=== PATIENT | male | born 1945 | race Caucasian/White ===

== ENCOUNTER 2019-05-08 18:24 | Emergency (ER) | payer MEDICARE, OTHER ==
[~2019-05-08] VITALS: Ht 175.3 cm; Wt 68.0 kg
[2019-05-08 19:05] LABS: BASOPHILS ABSOLUTE AUTO 0.03 K/mm3 (0.00-0.23); BASOPHILS PERCENT AUTO 0 % (0-2); EOSINOPHILS ABSOLUTE AUTO 0.04 K/mm3 (0.00-0.68); EOSINOPHILS PERCENT AUTO 1 % (0-6); Hematocrit 43.9 % (37.0-53.0); Hemoglobin 14.7 g/dL (13.5-17.5); IMMATURE GRAN ABSOLUTE AUTO 0.01 K/mm3 (0.00-0.10); IMMATURE GRAN PERCENT AUTO 0 % (0-1); LYMPHOCYTES ABSOLUTE AUTO 3.07 K/mm3 (0.84-5.20); LYMPHOCYTES PERCENT AUTO 39 % (21-46); MONOCYTES ABSOLUTE AUTO 0.77 K/mm3 (0.16-1.47); MONOCYTES PERCENT AUTO 10 % (4-13); Mean Corpuscular HGB Conc 33.5 g/dL (31.5-36.5); Mean Corpuscular Volume 98 fL (80-100); Mean Platelet Volume 10.3 fL (9.1-12.4); NEUTROPHILS ABSOLUTE AUTO 3.95 K/mm3 (1.96-9.15); NEUTROPHILS PERCENT AUTO 50 % (41-73); Platelet Count 207 K/mm3 (150-400); RDW Coefficient Variation 13.2 % (11.7-14.2); RDW Standard Deviation 48.6 fL (35.1-46.3); Red Blood Cell Count 4.46 M/mm3 (4.30-5.90); White Blood Cell Count 7.87 K/mm3 (4.00-11.30)
[2019-05-08 19:20] LABS: International Normalized Ratio 1.05; Prothrombin Time Results 11.1 Sec (9.7-11.5)
[2019-05-08 19:36] LABS: Alanine Aminotransfer (ALT/SGP 16 U/L (12-78); Albumin, Blood 4.1 g/dL (3.4-5.0); Albumin/Globulin Ratio 1.4 (0.8-1.8); Alk Phos 55 U/L (50-136); Anion Gap 7 mmol/L (6-16); Aspartate Aminotrans (AST/SGOT 17 U/L (12-37); Blood Urea Nitrogen 14 mg/dL (8-24); Bun/Creatinine Ratio 13.7 (12.0-20.0); CO2, Blood 24 mmol/L (21-32); Calcium, Blood 9.1 mg/dL (8.5-10.1); Chloride, Blood 108 mmol/L (98-108); Creatinine, Blood 1.02 mg/dL (0.60-1.20); Globulin, Blood 2.9 g/dL (2.2-4.0); Glomerular Filtration Rate >60 (60-); Glucose, Blood 100 mg/dL (70-99); Potassium, Blood 3.8 mmol/L (3.5-5.5); Sodium, Blood 139 mmol/L (136-145)
== END 2019-05-08 21:04 | disposition short-term general hospital (02) ==
LOC: ER 18:24
PROVIDERS: Emergency Medicine
DX: I62.9 Nontraumatic intracranial hemorrhage, unspecified (principal)
CPT/HCPCS: 70450; 71045; 80053; 82947; 85025; 85610; 85730; 93005; 93010; 96365; 96366; 96368; 99285-25; J1953; J7050

== ENCOUNTER 2019-06-11 01:38 | Inpatient (IN) | payer MEDICARE, OTHER ==
[~2019-06-11] VITALS: Ht 177.8 cm; Wt 52.2 kg
[2019-06-11] MEDS ORDERED: Flomax0.4 MG PT (01:57)
[2019-06-11] MEDS ORDERED: ATOR20 PT (01:58)
[2019-06-11] MEDS ORDERED: LISI20 PT (01:59)
[2019-06-11] MEDS ORDERED: NICO21TP TOP (02:00)
[2019-06-11] MEDS ORDERED: AMLO5 PT (02:00)
[2019-06-11] MEDS ORDERED: BACTRIM DS TAB1 EACH PT (02:01)
[2019-06-11] MEDS ORDERED: PROBIOTIC FORM1 EAC1 PT (02:02)
[2019-06-11 02:04] LABS: BASOPHILS ABSOLUTE AUTO 0.03 K/mm3 (0.00-0.23); BASOPHILS PERCENT AUTO 0 % (0-2); EOSINOPHILS PERCENT AUTO 1 % (0-6); Hematocrit 38.7 % (37.0-53.0); Hemoglobin 12.5 g/dL (13.5-17.5); IMMATURE GRAN ABSOLUTE AUTO 0.07 K/mm3 (0.00-0.10); IMMATURE GRAN PERCENT AUTO 1 % (0-1); LYMPHOCYTES ABSOLUTE AUTO 2.31 K/mm3 (0.84-5.20); LYMPHOCYTES PERCENT AUTO 26 % (21-46); MONOCYTES PERCENT AUTO 11 % (4-13); Mean Corpuscular HGB 31.7 pg (26.0-34.0); Mean Corpuscular HGB Conc 32.3 g/dL (31.5-36.5); Mean Platelet Volume 9.8 fL (9.1-12.4); NEUTROPHILS ABSOLUTE AUTO 5.35 K/mm3 (1.96-9.15); NEUTROPHILS PERCENT AUTO 60 % (41-73); Platelet Count 293 K/mm3 (150-400); RDW Coefficient Variation 12.7 % (11.7-14.2); RDW Standard Deviation 45.7 fL (35.1-46.3); Red Blood Cell Count 3.94 M/mm3 (4.30-5.90); White Blood Cell Count 8.86 K/mm3 (4.00-11.30)
[2019-06-11] MEDS ORDERED: Duoneb 2.5-0.5 M3 ML INH (02:05)
[2019-06-11 02:07] LABS: Mean Corpuscular Volume 98 fL (80-100)
[2019-06-11] MEDS ORDERED: NEURONTIN PT (02:08)
[2019-06-11] MEDS ORDERED: ACETAMINOPHEN PT (02:08)
[2019-06-11] MEDS ORDERED: BISA10S PR (02:09)
[2019-06-11] MEDS ORDERED: Docusate S50 MG/5 ML PT (02:13)
[2019-06-11] MEDS ORDERED: ONDA4 PO (02:13)
[2019-06-11] MEDS ORDERED: NUTREN 1.5250 ML PT (02:15)
[2019-06-11 02:23] LABS: Alanine Aminotransfer (ALT/SGP 58 U/L (12-78); Albumin, Blood 2.8 g/dL (3.4-5.0); Albumin/Globulin Ratio 0.7 (0.8-1.8); Alk Phos 83 U/L (50-136); Anion Gap 6 mmol/L (6-16); Aspartate Aminotrans (AST/SGOT 41 U/L (12-37); Bilirubin, Total 0.5 mg/dL (0.1-1.0); Blood Urea Nitrogen 15 mg/dL (8-24); Bun/Creatinine Ratio 16.7 (12.0-20.0); CO2, Blood 31 mmol/L (21-32); Calcium, Blood 9.1 mg/dL (8.5-10.1); Chloride, Blood 106 mmol/L (98-108); Globulin, Blood 3.8 g/dL (2.2-4.0); Glomerular Filtration Rate >60 (60-); Glucose, Blood 90 mg/dL (70-99); Potassium, Blood 3.9 mmol/L (3.5-5.5); Sodium, Blood 143 mmol/L (136-145); Total Protein, Blood 6.6 g/dL (6.4-8.2)
[2019-06-11] MEDS ORDERED: BANANA FLAKES PT (02:30)
[2019-06-11 04:32] LABS: Adenovirus F 40/41 Not Detected (NOT DETECT); Astrovirus Not Detected (NOT DETECT); Campylobacter Sp Not Detected (NOT DETECT); Cryptosporidium Not Detected (NOT DETECT); Cyclospora Cayetanensis Not Detected (NOT DETECT); E. Coli O157 Not Detected (NOT DETECT); Entamoeba Histolytica Not Detected (NOT DETECT); Enteroaggregative E. coli-EAEC Not Detected (NOT DETECT); Enteropathogenic E. coli-EPEC Not Detected (NOT DETECT); Enterotoxigenic E. coli-ETEC Not Detected (NOT DETECT); Giardia Lamblia Not Detected (NOT DETECT); Norovirus GI/GII Not Detected (NOT DETECT); Plesiomonas Shigelloides Not Detected (NOT DETECT); Rotavirus A Not Detected (NOT DETECT); Salmonella Sp Not Detected (NOT DETECT); Sapovirus Not Detected (NOT DETECT); Shiga Toxin-prod E. coli-STEC Not Detected (NOT DETECT); Shigella/Enteroin E. coli-EIEC Not Detected (NOT DETECT); Vibrio Cholerae Not Detected (NOT DETECT); Vibrio Sp Not Detected (NOT DETECT); Yersinia Enterocolitica Not Detected (NOT DETECT)
--- NOTE | 2019-06-11 06:36 | NUR ---
PT ARRIVED PER ER. ALERT. INDWELLING CHAVEZ REMOVED.
[2019-06-11 07:32] LABS: Source, Urine Catheter
[2019-06-11 07:36] LABS: Bilirubin, Urine Neg (Neg); Blood, Urine 2+ (Neg); Glucose Qualitative, Urine Neg (Neg); Ketones, Urine Neg (Neg); Leukocyte Esterase, Urine 1+ (Neg); Nitrite, Urine Neg (Neg); Protein, Urine Neg (Neg); Urobilinogen, Urine 2+ (Normal)
[2019-06-11 08:15] LABS: Appearance, Urine Clear (Clear); Color, Urine Yellow (P-Yellow)
[2019-06-11 08:17] LABS: Bacteria Mod /hpf; Squamous Epithelial Cells Rare /hpf (Few)
[2019-06-11 08:18] LABS: Amorphous Light (0-Heavy)
--- NOTE | 2019-06-11 15:37 | NUR ---
DOBHOFF TUBE INSERTED. DR REPORTS PT WILL HAVE XRAY TO VERIFY PLACEMENT IN THE MORNING.
--- NOTE | 2019-06-11 17:30 | NUR ---
SHIFT SUMMARY PT IS A/O ALTHOUGH HAS VERY DIFFICULT TIME COMMUNICATING VERBALLY SINCE CVA. HE HAS BEEN UP TO THE CHAIR TODAY BUT WAS UNCOMFORTABLE AND HAS BEEN IN BED SINCE AFTERNOON. HAS BEEN IN TO SEE PT. DOBHOFF TUBE WAS PLACED TODAY; PT WILL HAVE XRAY TOMORROW TO CONFIRM PLACEMENT PER DR JOINER. CHAVEZ IN PLACE, OFF FLOOR, DRAINING. FLUIDS HAVE BEEN RUNNING TODAY PER ORDERS. PT HAS ONLY REPORTED PAIN WHEN PEG TUBE IS TOUCHED. ASSISTED WITH ADL'S PRN.
[2019-06-12 04:05] LABS: BASOPHILS ABSOLUTE AUTO 0.04 K/mm3 (0.00-0.23); BASOPHILS PERCENT AUTO 1 % (0-2); EOSINOPHILS ABSOLUTE AUTO 0.08 K/mm3 (0.00-0.68); EOSINOPHILS PERCENT AUTO 1 % (0-6); Hematocrit 35.5 % (37.0-53.0); Hemoglobin 11.4 g/dL (13.5-17.5); IMMATURE GRAN ABSOLUTE AUTO 0.06 K/mm3 (0.00-0.10); IMMATURE GRAN PERCENT AUTO 1 % (0-1); LYMPHOCYTES ABSOLUTE AUTO 2.04 K/mm3 (0.84-5.20); LYMPHOCYTES PERCENT AUTO 27 % (21-46); MONOCYTES ABSOLUTE AUTO 0.72 K/mm3 (0.16-1.47); MONOCYTES PERCENT AUTO 10 % (4-13); Mean Corpuscular HGB 31.6 pg (26.0-34.0); Mean Corpuscular HGB Conc 32.1 g/dL (31.5-36.5); Mean Corpuscular Volume 98 fL (80-100); Mean Platelet Volume 9.7 fL (9.1-12.4); NEUTROPHILS ABSOLUTE AUTO 4.56 K/mm3 (1.96-9.15); NEUTROPHILS PERCENT AUTO 61 % (41-73); Platelet Count 278 K/mm3 (150-400); RDW Coefficient Variation 12.8 % (11.7-14.2); RDW Standard Deviation 45.8 fL (35.1-46.3); Red Blood Cell Count 3.61 M/mm3 (4.30-5.90)
[2019-06-12 04:25] LABS: Anion Gap 8 mmol/L (6-16); Blood Urea Nitrogen 13 mg/dL (8-24); CO2, Blood 26 mmol/L (21-32); Calcium, Blood 8.9 mg/dL (8.5-10.1); Chloride, Blood 106 mmol/L (98-108); Creatinine, Blood 0.82 mg/dL (0.60-1.20); Glomerular Filtration Rate >60 (60-); Glucose, Blood 70 mg/dL (70-99); Potassium, Blood 4.1 mmol/L (3.5-5.5); Sodium, Blood 140 mmol/L (136-145)
--- NOTE | 2019-06-12 06:31 | NUR ---
SHIFT SUMMARY PT ABLE TO MOVE LEFT SIDE OF BODY AND PULL SELF UP IN BED WITH LEFT HAND. MOVES RIGHT ARM WITH LEFT HAND AND REPOSITIONES PRN. MEPILEX IN PLACE TO COCCYX. C-XRAY COMPLTED FOR DUBHOFF PLACEMENT AND ADVANCEMENT VERIFICATION. PASSING GAS, BUT NO BM NOTED THIS SHIFT. CONTINUES TO C/O ABD PAIN AND HIS HAD 2 EPISODES OF HICKUPS. ASSITED IN REPOSISIONING PRN. DENEIS FURTHER NEEDS OR WANTS AT THIS TIME. SAFETY MEASURES IN PLACE. WILL GIVE HAND OFF TO ONCOMING SHIFT USING SBAR.
--- NOTE | 2019-06-12 17:39 | NUR ---
SHIFT SUMMARY NO ACUTE CHANGES THIS SHIFT. PT REMIANS NPO. DOBHOFF TUBE ADVANCED PER ORDERS. 25MCG IV FENTANYL FOR PAIN PRN. PT REPOSITIONS SELF IN BED AND REFUSES REPOSITIONING HELP FROM STAFF. MEPILEX TO COCCYX. CHAVEZ PATENT. IVF INFUSING PER ORDERS. CALL LIGHT WITHIN REACH.
--- NOTE | 2019-06-13 06:18 | NUR ---
SHIFT SUMMARY PATIENT HAS HAD PAIN IN HIS ABDOMEN AND THE HICCOPS THROUGH OUT THE NIGHT. PATIENT HAS BEEN MEDICATED PER EMAR ORDERS. COMMUNICATION HAS BEEN DIFFICULT THE PATIENT IS UNABLE TO FULLY EXPRESS EVERY NEED. HE DOES OCCASIONALY SPEAK A YEA OR NO THAT IS CLEAR. WORKING ON HIS COUGH TO CLEAR SECREATIONS. HE IS ABLE TO TURN HIS SELF VERY OFTEN IN BED FROM LT RT RIGHT. PATIENT WAS ABLE TO GET 3+ HOURS OF UNINTERRUPTED SLEEP. NO OTHER ACUTE CHANGES.
--- NOTE | 2019-06-13 15:52 | NUR ---
S/P G TUBE PLACEMENT BY DR. CABRERA. G TUBE TO LUQ GAUZE DRESSING IS CDI. TUBE CLAMPED AT THIS TIME. PT REPORTS 5/10 PAIN. MEDICATED WITH FENTANYL IN [facility]. IVF INFUSING PER ORDERS. VITALS IN PROGRESS. OLD PEG TUBE STILL IN PLACE AND CLAMED AT THIS TIME. CALL LIGHT WITHIN REACH.
--- NOTE | 2019-06-13 17:26 | NUR ---
Pt. gave approval to provide care on 06/14/2019, at 1712 06/13/2019.
--- NOTE | 2019-06-13 17:43 | NUR ---
PT VERY NAUSEATED AND HAS HAD X2 EPISODES OF EMESIS POST OP. PT REPORTS INCREASED ABDOMINAL PAIN AND ABD IS FIRM AND TENDER TO THE TOUCH. TUBE FEEDS NOT STARTED PER CLINICAL JUDGEMENT AND PER DR. CABRERA ORDER.
--- NOTE | 2019-06-14 06:08 | NUR ---
shift summary: SBP elevated >160, medicated per mar with lowering <160. pt remained mostly non-verbal, a/0 x 4, able to gesture and give one word responses/requests. NPO this shift per orders r/t n/v, abd pain. pt struggled with abd pain and n/v, medicated per mar with 3 different antiemetics, nausea controlled with phenergan and zofran. pain reported at 4/10 at the lowest following administraion of analgesia per mar. pt unable to sleep until approx 0130, but appears to be sleeping intermittently on nurse roundings after 0130. pt with 3 large, liquid, incontent BM requiring full bed changes.
--- NOTE | 2019-06-14 08:00 | NUR ---
pt wakes to verbal stimuli asked if pt needs any pain meds at this time pt declined no nausea at this time pt has some light green drainage to j tube gauze
[2019-06-14 08:58] LABS: Hematocrit 34.6 % (37.0-53.0); Hemoglobin 11.5 g/dL (13.5-17.5); Mean Corpuscular HGB 32.1 pg (26.0-34.0); Mean Corpuscular HGB Conc 33.2 g/dL (31.5-36.5); Mean Corpuscular Volume 97 fL (80-100); Mean Platelet Volume 9.7 fL (9.1-12.4); Platelet Count 327 K/mm3 (150-400); RDW Coefficient Variation 13.4 % (11.7-14.2); RDW Standard Deviation 47.3 fL (35.1-46.3); Red Blood Cell Count 3.58 M/mm3 (4.30-5.90); White Blood Cell Count 13.06 K/mm3 (4.00-11.30)
[2019-06-14 09:08] LABS: Anion Gap 12 mmol/L (6-16); Blood Urea Nitrogen 12 mg/dL (8-24); Bun/Creatinine Ratio 15.6 (12.0-20.0); CO2, Blood 25 mmol/L (21-32); Calcium, Blood 8.4 mg/dL (8.5-10.1); Chloride, Blood 103 mmol/L (98-108); Creatinine, Blood 0.77 mg/dL (0.60-1.20); Glomerular Filtration Rate >60 (60-); Glucose, Blood 88 mg/dL (70-99); Potassium, Blood 3.8 mmol/L (3.5-5.5); Sodium, Blood 140 mmol/L (136-145)
--- NOTE | 2019-06-14 09:50 | NUR ---
dr moya by to see pt earlier this am pt had fever cxray and bc iv abx started pt oob in chair physicap therapy by earlier got pt up
--- NOTE | 2019-06-14 10:20 | NUR ---
pt req pain meds fent ivp pt assisted back into bed
--- NOTE | 2019-06-14 17:50 | NUR ---
DR JOINER BY TO SEE PT REMOVED OUTER GAUZE TO J TUBE DRESSING STATED WE COULD PUT IT TO SUCTION OR PUT IT TO A BAG TO GRAVITY IF STILL DRAINING AND WILL POSS START TF THUR PT WILL CONT TO KEEP THE OTHER TUBE LLQ PEG FOR SEVERAL DAYS ALSO TALKED WITH PT FAMILY
--- NOTE | 2019-06-14 18:30 | NUR ---
attached tube to low int sx light green scant amt out
--- NOTE | 2019-06-15 03:38 | NUR ---
PT REQUIRING PHENERGAN AND SUBLIMAZE TONIGHT.G-J TUBE CONTINUES TO SX WTIH PALE GREEN RETURN. PT SLEEPING AFTER PAIN MEDS.PT BEING TRANSFERRED TO RM 327. REPORT GIVEN TO MG VALDIVIA.
--- NOTE | 2019-06-15 04:06 | NUR ---
PATIENT ARRIVED TO FLOOR, SETTLED INTO THE ROOM. G-TUBE HOOKED TO LOW INTERMITTENT SUCTION, THERE IS GREEN BILE NOTED IN THE TUBE. DRESSINGS OVER BOTH PEG TUBE SITE AND G-TUBE SITE. CATHETER PATENT AND DRAINING. STATES MILD NAUSEA, WILL CHECK MAR TO SEE IF MEDS ARE DUE. WILL HAND BACK OF LR PATIENT IS JUST FINISHED THE LAST BAG. BED ALARM PLACED. CALL LIGHT GIVEN.
--- NOTE | 2019-06-15 05:12 | NUR ---
SHIFT SUMMARY: MONAE ARRIVED TO THE FLOOR AROUND 4 THIS MORNING. HE WAS SETTLED INTO THE ROOM. IV LR WAS STARTED AND PHENERGAN GIVEN FOR NAUSEA. HE DENIED ANY PAIN OR DISCOMFORT. DENIED NEED TO BE REPOSITIONED, IS ABLE TO MOVE SELF AROUND IN BED. G-TUBE HOOKED TO LOW INTERMINTENT SUCTION. DRESSINGS TO G-TUBE AND PEG TUBE INTACT, NO DRAINAGE NOTED. BED ALARM PLACED. PATIENT SLEPT REST OF SHIFT.
[2019-06-15 08:39] LABS: BASOPHILS ABSOLUTE AUTO 0.02 K/mm3 (0.00-0.23); BASOPHILS PERCENT AUTO 0 % (0-2); Hematocrit 36.9 % (37.0-53.0); IMMATURE GRAN PERCENT AUTO 0 % (0-1); MONOCYTES PERCENT AUTO 9 % (4-13); Mean Corpuscular HGB 31.7 pg (26.0-34.0); Mean Corpuscular HGB Conc 32.5 g/dL (31.5-36.5); Mean Corpuscular Volume 98 fL (80-100); Mean Platelet Volume 9.7 fL (9.1-12.4); Platelet Count 333 K/mm3 (150-400); RDW Coefficient Variation 13.5 % (11.7-14.2); RDW Standard Deviation 48.1 fL (35.1-46.3); Red Blood Cell Count 3.78 M/mm3 (4.30-5.90); White Blood Cell Count 9.56 K/mm3 (4.00-11.30)
[2019-06-15 09:34] LABS: LYMPHOCYTES PERCENT AUTO 16 % (21-46); NEUTROPHILS PERCENT AUTO 74 % (41-73)
[2019-06-15 09:35] LABS: EOSINOPHILS ABSOLUTE AUTO 0.04 K/mm3 (0.00-0.68); EOSINOPHILS PERCENT AUTO 0 % (0-6); IMMATURE GRAN ABSOLUTE AUTO 0.03 K/mm3 (0.00-0.10); LYMPHOCYTES ABSOLUTE AUTO 1.49 K/mm3 (0.84-5.20); MONOCYTES ABSOLUTE AUTO 0.89 K/mm3 (0.16-1.47); NEUTROPHILS ABSOLUTE AUTO 7.15 K/mm3 (1.96-9.15)
--- NOTE | 2019-06-15 18:05 | NUR ---
PATIENT HAS TOLERATED J TUBE FEEDINGS WELL WITH NO VOMITING. PATIENT STILL REPORTS SLIGHT NAUSEA BUT HAS NOT REQUESTED ANY MEDICATION FOR IT. HIS SPEACH IS GARBLED AND OFTEN HARD TO UNDERSTAND BUT IS ABLE TO MAKE HIS NEEDS KNOWN. G TUBE CONTINUES TO DRAIN VIA GRAVITY. DRESSING TO COCCYX CHANGED THIS SHIFT. PATIENT HAS TOLERATED ICE CHIPS THROUGH OUT THE DAY.
--- NOTE | 2019-06-16 05:09 | NUR ---
SHIFT SUMMARY ADMIT FOR PEG TUBE MALFUNCTION. FULL CODE. GJ TUBE INSTALLED. TUBE FEEDINGS NOW 20 ML/HR. PT STATED NAUSEA TWICE DURING MY SHIFT. ZOFRAN WAS EFFECTIVE. LR IS INFUSING @ 75 ML/HR. CHRONIC CHAVEZ IN PLACE. RA, GARBLED SPEECH, NPO DIET. PLAN MAY BE TO REMOVE OLD PEG TUBE TODAY. HX: HEMORRHAGIC CVA, HTN, COPD. SECONDARY DX: SEPSIS, UTI.
[2019-06-16 05:18] LABS: Hematocrit 33.4 % (37.0-53.0); Hemoglobin 11.1 g/dL (13.5-17.5); Mean Corpuscular HGB 31.6 pg (26.0-34.0); Mean Corpuscular HGB Conc 33.2 g/dL (31.5-36.5); Mean Platelet Volume 9.6 fL (9.1-12.4); Platelet Count 330 K/mm3 (150-400); RDW Coefficient Variation 13.4 % (11.7-14.2); RDW Standard Deviation 45.9 fL (35.1-46.3); Red Blood Cell Count 3.51 M/mm3 (4.30-5.90); White Blood Cell Count 8.37 K/mm3 (4.00-11.30)
[2019-06-16 05:23] LABS: Mean Corpuscular Volume 95 fL (80-100)
[2019-06-16 05:42] LABS: Magnesium, Blood 1.6 mg/dL (1.6-2.4)
[2019-06-16 05:43] LABS: Anion Gap 8 mmol/L (6-16); Blood Urea Nitrogen 9 mg/dL (8-24); Bun/Creatinine Ratio 12.2 (12.0-20.0); CO2, Blood 29 mmol/L (21-32); Calcium, Blood 8.4 mg/dL (8.5-10.1); Chloride, Blood 101 mmol/L (98-108); Creatinine, Blood 0.74 mg/dL (0.60-1.20); Glomerular Filtration Rate >60 (60-); Glucose, Blood 114 mg/dL (70-99); Phosphorus, Blood 3.4 mg/dL (2.5-4.9); Potassium, Blood 3.1 mmol/L (3.5-5.5); Sodium, Blood 138 mmol/L (136-145)
[2019-06-16 05:48] LABS: BASOPHILS PERCENT MAN 0 % (0-2); EOSINOPHILS ABSOLUTE MAN 0.16 K/mm3 (0.00-0.68); EOSINOPHILS PERCENT MAN 2 % (0-6); LYMPHOCYTES ABSOLUTE MAN 2.42 K/mm3 (0.84-5.20); LYMPHOCYTES PERCENT MAN 29 % (21-46); MONOCYTES ABSOLUTE MAN 0.25 K/mm3 (0.16-1.47); MONOCYTES PERCENT MAN 3 % (4-13); NEUTROPHILS ABSOLUTE MAN 5.52 K/mm3 (1.96-9.15); SEG NEUTROPHILS PERCENT MAN 66 % (41-73); TOTAL CELLS COUNTED 100
--- NOTE | 2019-06-16 12:02 | NUR ---
1145 SMALL AMOUNT OF FECAL MATTER COMING FROM FRESHLY CLIPPED PEG TUBE. DOCTOR RHYS NOTIFED AND STATED HE WOULD COME LOOK AT IT AFTER PROCEDURE. SITE WAS CLEANED AND WILL CONTINUE TO MONITOR. PATIENT IN NO DISTRESS .
[2019-06-16 12:16] LABS: BASOPHILS ABSOLUTE AUTO 0.01 K/mm3 (0.00-0.23); BASOPHILS PERCENT AUTO 0 % (0-2); EOSINOPHILS ABSOLUTE AUTO 0.04 K/mm3 (0.00-0.68); EOSINOPHILS PERCENT AUTO 1 % (0-6); Hematocrit 34.5 % (37.0-53.0); Hemoglobin 11.5 g/dL (13.5-17.5); IMMATURE GRAN ABSOLUTE AUTO 0.04 K/mm3 (0.00-0.10); IMMATURE GRAN PERCENT AUTO 1 % (0-1); LYMPHOCYTES ABSOLUTE AUTO 0.86 K/mm3 (0.84-5.20); LYMPHOCYTES PERCENT AUTO 13 % (21-46); MONOCYTES ABSOLUTE AUTO 0.55 K/mm3 (0.16-1.47); MONOCYTES PERCENT AUTO 8 % (4-13); Mean Corpuscular HGB Conc 33.3 g/dL (31.5-36.5); Mean Corpuscular Volume 96 fL (80-100); Mean Platelet Volume 9.9 fL (9.1-12.4); NEUTROPHILS ABSOLUTE AUTO 5.29 K/mm3 (1.96-9.15); NEUTROPHILS PERCENT AUTO 78 % (41-73); Platelet Count 334 K/mm3 (150-400); RDW Coefficient Variation 13.3 % (11.7-14.2); RDW Standard Deviation 47.4 fL (35.1-46.3); Red Blood Cell Count 3.59 M/mm3 (4.30-5.90); White Blood Cell Count 6.79 K/mm3 (4.00-11.30)
--- NOTE | 2019-06-16 17:00 | NUR ---
PATIENT TOLERATING FEEDINGS. RATE INCREASED TO 30ML/HR WITH FLUSH. TO BE INCREASED AFTER DR CUAUHTEMOC LARSON'S HIM 06/17/19. PATIENT WAS ABLE TO STAND WITH NEIL WALKER WHILE WORKING WITH PT. OLD PEG WAS CLIPPED BY DOCTOR JOINER . SMALL AMOUNT OF FECAL MATTER CAME OUT . NONE NOTED SINCE. PATIENT HAS NOT BEEN NAUSEATED THIS SHIFT.
--- NOTE | 2019-06-17 01:10 | NUR ---
BEGINNING SHIFT SUMMARY ASSUMED CARE OF PT AT 1900. PT WAS LYING IN BED RESTING. PT IS ALERT AND ORIENTED TO SELF, FOLLOWING DIRECTIONS AND SURROUNDINGS. PT HAS R SIDE DEFICIT DUE TO PREVIOUS CVA. PT HAS MUMBLED SPEECH DUE TO LEFT SIDED DROOP, PT BECOMES FUSTRATED AT TIMES DUE TO NOT BEING ABLE TO COMMUNICATE. PREVIOUS PEG TUBE IS DARK AROUND THE EDGES, NO S/SX OF INFECTION. J TUBE DRAINING DARK BROWN/GREEN LIQUID, CONTINUOUS FEEDING RUNNING AT 30ML/HR, TUBING CHANGED THIS SHIFT. IV INFUSING LR AT 75ML/HR. HEART SOUNDS REGULAR, LUNG SOUNDS DIMINISHED, PT C/O COUGH, PT SHOWED IT WAS NON PRODUCTIVE. DENIES CP/SOB/DYSPNEA AT THIS TIME. CALL LIGHT IN REACH, BED IN LOWEST POSTION, WILL CONTINUE TO MONITOR.
--- NOTE | 2019-06-17 04:26 | NUR ---
END SHIFT SUMMARY PT WAS NOT ABLE TO SLEEP AT ALL LAST NIGHT. PT SONTINUE TO HAVE DIFFICULTY COMMUNICATING NEEDS. MULTIPLE ATTEMPTS WITH WHITE BOARD AND PICTURE BOARD USED TO COMMUNICATE BUT PT DIDNT WAS TO WRITE AND HIS NEED WAS NOT ON THE BOARD. PUMP INFUSING AT 30ML/HR, PT COUGH HAS DECREASED. CALL LIGHT IN REACH, BED IN LOWEST POSTION, WILL CONTINUE TO MONITOR UNTIL DAYSHIFT NURSE ARRIVES.
[2019-06-17 06:12] LABS: BASOPHILS ABSOLUTE AUTO 0.03 K/mm3 (0.00-0.23); BASOPHILS PERCENT AUTO 1 % (0-2); EOSINOPHILS ABSOLUTE AUTO 0.12 K/mm3 (0.00-0.68); EOSINOPHILS PERCENT AUTO 2 % (0-6); Hematocrit 32.7 % (37.0-53.0); Hemoglobin 10.7 g/dL (13.5-17.5); IMMATURE GRAN ABSOLUTE AUTO 0.01 K/mm3 (0.00-0.10); IMMATURE GRAN PERCENT AUTO 0 % (0-1); LYMPHOCYTES ABSOLUTE AUTO 1.33 K/mm3 (0.84-5.20); LYMPHOCYTES PERCENT AUTO 22 % (21-46); MONOCYTES ABSOLUTE AUTO 0.68 K/mm3 (0.16-1.47); MONOCYTES PERCENT AUTO 11 % (4-13); Mean Corpuscular HGB 31.3 pg (26.0-34.0); Mean Corpuscular HGB Conc 32.7 g/dL (31.5-36.5); Mean Corpuscular Volume 96 fL (80-100); Mean Platelet Volume 10.5 fL (9.1-12.4); NEUTROPHILS ABSOLUTE AUTO 3.99 K/mm3 (1.96-9.15); NEUTROPHILS PERCENT AUTO 65 % (41-73); Platelet Count 333 K/mm3 (150-400); RDW Coefficient Variation 13.4 % (11.7-14.2); RDW Standard Deviation 46.4 fL (35.1-46.3); Red Blood Cell Count 3.42 M/mm3 (4.30-5.90); White Blood Cell Count 6.16 K/mm3 (4.00-11.30)
--- NOTE | 2019-06-17 16:09 | NUR ---
DISCHARGE DISCHARGE BACK TO [facility]. PATIENT TRANSPORTED VIA [facility] TRANSPORT. PACKET GIVEN TO WORKFORCE DEVELOPMENT ASSISTANT. IV REMOVED WITHOUT DIFFICULTY. REPORT CALLED TO [facility] NURSE.
[2019-06-17] MEDS ORDERED: AZIT100SU PT (16:30)
[2019-06-17] MEDS ORDERED: BANANA FLAKES PT (16:36)
[2019-06-17] MEDS ORDERED: CEPH250SUA PT (16:43)
[2019-06-17] MEDS ORDERED: Norco 5-325 Ta1 EACH PT (16:44)
[2019-06-17] MEDS ORDERED: MELA3 PT (16:45)
[2019-06-17] MEDS ORDERED: HYDRA50 PT (16:45)
[2019-06-17] MEDS ORDERED: METOCLOPRA10 MG/10 M PT (16:47)
== END 2019-06-17 15:28 | DRG 393 ==
LOC: ER 01:38 → SURS 01:39 → MEDS 06-15 03:57
PROVIDERS: Emergency Medicine; Family Medicine; Internal Medicine; Surgery; ADMIT Hospitalist
PROC: 0DHA7UZ Insertion of Feeding Device into Jejunum, Via Natural or Artificial Opening (ICD-10-PCS; principal; 2019-06-15)
DX: K94.23 Gastrostomy malfunction (principal); A41.9 Sepsis, unspecified organism; J69.0 Pneumonitis due to inhalation of food and vomit; T83.511A Infection and inflammatory reaction due to indwelling urethral catheter, initial encounter; I69.351 Hemiplegia and hemiparesis following cerebral infarction affecting right dominant side; K63.2 Fistula of intestine; N39.0 Urinary tract infection, site not specified; I10 Essential (primary) hypertension; J44.9 Chronic obstructive pulmonary disease, unspecified; F17.200 Nicotine dependence, unspecified, uncomplicated; I25.10 Atherosclerotic heart disease of native coronary artery without angina pectoris
CPT/HCPCS: 0097U; 36415; 36416; 49452; 71045; 71046; 74177; 80048; 80053; 81001; 83605; 83690; 83735; 84100; 85025; 85027; 87040; 87086; 93005; 93010; 96361; 96374-59; 96375; 96376; 97110; 97112; 97116; 97162; 97166; 97530; 97535; 99152; 99153; 99285-25; C1769; C1887; G0378; J0360; J0456; J0696; J1650; J2250; J2405; J2550; J2765; J3010; J7030; J7040; J7050; J7120; Q9967

== ENCOUNTER 2019-07-04 01:06 | Inpatient (IN) | payer MEDICARE, OTHER ==
[~2019-07-04] VITALS: Ht 167.6 cm; Wt 47.0 kg
[~2019-07-04 01:06] MED LIST: ACETAMINOPHEN PT; AMLO5 PT; ATOR20 PT; AZIT100SU PT; BACTRIM DS TAB1 EACH PT; BANANA FLAKES PT; BISA10S PR; CEPH250SUA PT; Docusate S50 MG/5 ML PT; Duoneb 2.5-0.5 M3 ML INH; Flomax0.4 MG PT; HYDRA50 PT; LISI20 PT; MELA3 PT; METOCLOPRA10 MG/10 M PT; NEURONTIN PT; NICO21TP TOP; NUTREN 1.5250 ML PT; Norco 5-325 Ta1 EACH PT; ONDA4 PO; PROBIOTIC FORM1 EAC1 PT
[2019-07-04 02:34] LABS: BASOPHILS ABSOLUTE AUTO 0.03 K/mm3 (0.00-0.23); BASOPHILS PERCENT AUTO 0 % (0-2); Hemoglobin 12.5 g/dL (13.5-17.5); LYMPHOCYTES PERCENT AUTO 13 % (21-46); MONOCYTES ABSOLUTE AUTO 0.77 K/mm3 (0.16-1.47); MONOCYTES PERCENT AUTO 8 % (4-13); Mean Corpuscular HGB 31.9 pg (26.0-34.0); Mean Corpuscular HGB Conc 32.9 g/dL (31.5-36.5); Mean Corpuscular Volume 97 fL (80-100); Mean Platelet Volume 11.3 fL (9.1-12.4); Platelet Count 185 K/mm3 (150-400); RDW Coefficient Variation 14.6 % (11.7-14.2); RDW Standard Deviation 52.5 fL (35.1-46.3); Red Blood Cell Count 3.92 M/mm3 (4.30-5.90); White Blood Cell Count 10.28 K/mm3 (4.00-11.30)
[2019-07-04 02:35] LABS: EOSINOPHILS ABSOLUTE AUTO 0.01 K/mm3 (0.00-0.68); EOSINOPHILS PERCENT AUTO 0 % (0-6); IMMATURE GRAN ABSOLUTE AUTO 0.02 K/mm3 (0.00-0.10); IMMATURE GRAN PERCENT AUTO 0 % (0-1); NEUTROPHILS ABSOLUTE AUTO 8.15 K/mm3 (1.96-9.15); NEUTROPHILS PERCENT AUTO 79 % (41-73)
[2019-07-04 02:47] LABS: Alanine Aminotransfer (ALT/SGP 22 U/L (12-78); Albumin, Blood 2.8 g/dL (3.4-5.0); Albumin/Globulin Ratio 0.8 (0.8-1.8); Alk Phos 85 U/L (50-136); Anion Gap 5 mmol/L (6-16); Aspartate Aminotrans (AST/SGOT 16 U/L (12-37); Bilirubin, Total 1.2 mg/dL (0.1-1.0); Blood Urea Nitrogen 20 mg/dL (8-24); Bun/Creatinine Ratio 27.4 (12.0-20.0); CO2, Blood 27 mmol/L (21-32); Calcium, Blood 8.5 mg/dL (8.5-10.1); Chloride, Blood 101 mmol/L (98-108); Creatinine, Blood 0.73 mg/dL (0.60-1.20); Globulin, Blood 3.6 g/dL (2.2-4.0); Glomerular Filtration Rate >60 (60-); Glucose, Blood 104 mg/dL (70-99); Potassium, Blood 4.3 mmol/L (3.5-5.5); Sodium, Blood 133 mmol/L (136-145); Total Protein, Blood 6.4 g/dL (6.4-8.2)
[2019-07-04] MEDS ORDERED: Flomax0.4 MG PT (02:49)
[2019-07-04] MEDS ORDERED: Nicoderm Cq1 EAC1 TOP (02:50)
[2019-07-04] MEDS ORDERED: ACETAMINOPHEN PT (02:51)
[2019-07-04 02:53] LABS: BAND PERCENT MAN 22 % (0-8); BASOPHILS PERCENT MAN 0 % (0-2); EOSINOPHILS PERCENT MAN 0 % (0-6); LYMPHOCYTES ABSOLUTE MAN 1.33 K/mm3 (0.84-5.20); LYMPHOCYTES PERCENT MAN 13 % (21-46); MONOCYTES ABSOLUTE MAN 0.51 K/mm3 (0.16-1.47); MONOCYTES PERCENT MAN 5 % (4-13); NEUTROPHILS ABSOLUTE MAN 8.42 K/mm3 (1.96-9.15); SEG NEUTROPHILS PERCENT MAN 60 % (41-73); TOTAL CELLS COUNTED 100
[2019-07-04 05:17] LABS: Source, Urine Clean Catch
[2019-07-04 05:23] LABS: Bilirubin, Urine Neg (Neg); Blood, Urine 5+ (Neg); Glucose Qualitative, Urine Neg (Neg); Ketones, Urine Neg (Neg); Leukocyte Esterase, Urine 3+ (Neg); Nitrite, Urine Pos (Neg); Protein, Urine 3+ (Neg); Urobilinogen, Urine 1+ (Normal)
[2019-07-04 05:30] LABS: Appearance, Urine Cloudy (Clear); Color, Urine Yellow (P-Yellow)
[2019-07-04 05:32] LABS: Red Blood Cells, Urine TNTC /hpf (0-2); Squamous Epithelial Cells Not Seen /hpf (Few); White Blood Cells, Urine TNTC /hpf (0-5)
[2019-07-04 05:33] LABS: Bacteria Mod /hpf
--- NOTE | 2019-07-04 06:27 | NUR ---
Transfer report from [facility] VALDIV[facility] on PT b eing admitted with pneumonia, UTI , fever, N V and peg tube malfunction. CT abd showed large amt stool present. HX of chronic mcclure with mcclure changed last 06/30/19 at [facility]. Coughing fever emisis abd pain reported await admission. Reported coccyx wound with ecoli and candidia cultured 06/06/2019. Await admission.
[2019-07-04] MEDS ORDERED: NICO21TP TOP (07:00)
[2019-07-04] MEDS ORDERED: [UNRECOGNIZED DRUG - OTHER] PT (07:01)
[2019-07-04] MEDS ORDERED: Norco 5-325 Ta1 EACH PO (07:03)
--- NOTE | 2019-07-04 07:21 | NUR ---
PT admitted from ER with pneumonia and nausea and vomiting. has peg tube replaced last visit around 06/13/2019. NPO. Will continue to assess. Speech is garbled very difficult to understand. PT says falls within last 3 months. fall precautions initiated.
[2019-07-04 07:54] LABS: Adenovirus Not Detected (NOT DETECT); Bordetella pertussis Not Detected (NOT DETECT); Chlamydophila pneumoniae Not Detected (NOT DETECT); Coronavirus 229E Not Detected (NOT DETECT); Coronavirus HKU1 Not Detected (NOT DETECT); Coronavirus NL63 Not Detected (NOT DETECT); Coronavirus OC43 Not Detected (NOT DETECT); Human Metapneumovirus Not Detected (NOT DETECT); Human Rhinovirus/Enterovirus Not Detected (NOT DETECT); Influenza A Not Detected (NOT DETECT); Influenza A/2009-H1 Not Detected (NOT DETECT); Influenza A/H1 Not Detected (NOT DETECT); Influenza A/H3 Not Detected (NOT DETECT); Influenza B Not Detected (NOT DETECT); Mycoplasma pneumoniae Not Detected (NOT DETECT); Parainfluenza Virus 1 Not Detected (NOT DETECT); Parainfluenza Virus 2 Not Detected (NOT DETECT); Parainfluenza Virus 3 Not Detected (NOT DETECT); Parainfluenza Virus 4 Not Detected (NOT DETECT); Respiratory Syncytial Virus Not Detected (NOT DETECT)
--- NOTE | 2019-07-04 10:53 | NUR ---
INFORMED DR MASON AT 1045 THAT THE PATIENT'S J-TUBE DOESN'T WORK AND I CANNOT GIVE HIM THE ORDERED MEDICATIONS. SHE SAID JUST TO HOLD THE MEDS.
--- NOTE | 2019-07-04 15:48 | NUR ---
SHIFT SUMMARY ASSESSMENT, H&P AND MED REC COMPLETED MOSTLY USING THE PATIENT'S MEDICAL RECORDS. IT SEEMS THAT THE PATIENT IS A/Ox4 HOWEVER HE IS VERBALLY VERY HARD TO UNDERSTAND AND BECOMES FRUSTERATED WHEN HE IS UNABLE TO COMMUNICATE WHAT HE IS TRY TO SAY. J-TUBE IS PLUGGED, DR MCINTOSH IS AWARE OF THIS AND THAT THE PATIENT IS NOT RECIEVING ANY NUTRITION OR MEDICATION. SPEECH EVAL WAS ORDERED HOWEVER THE SPEECH THERAPIST WAS UNCOMFORTABLE GIVING THE PATIENT ANYTHING ORAL WITHOUT A BARRIUM SWALLOW WHICH SHE ORDERED FOR TOMMORROW. PATIENT IS RECIEVEING LR's AT 75/HR. FEVER THIS AFTERNOON HOWEVER IT WAS NOTED RIGHT AFTER A DULCOLAX SUPPOSITORY WAS ADMINISTERED SO ICE WAS PLACED IN AT THE PATIENTS GROIN AND ARM PITS, TEMP DID DROP TO 99.9. IS CURRENTLY AT BEDSIDE. CHAVEZ WAS CHANGED UPON ADMIT, PER HOSPITAL PROTOCOL, WAS THE FIELDSTART IV. ULCER AT [facility], SEE PICTURE IN CHART. PATIENT WAS STARTED ON IV ABX WITHOUT S/SX OF ADVERSE REACTIONS NOTED OR REPORTED. WILL CONTINUE TO MONITOR AND PROVIDE CARE.
--- NOTE | 2019-07-05 03:46 | NUR ---
74 year old MAle who appears much older than actual age was admitted yesterday AM with unresolved rt LL pneumonia. [facility]. PT had hemm. CVA in 04/2019 with rt UE flaccid rt LE weak. Strict NPO in gtube feeding cyclic. I was told in RN shift change report that Gtube which had been replaced within last 3 weeks was not working. When I attempted to utilize the tube for meds the Jtube chamber nonfunctional but the gtube lumen works well. Started 1.5 magdiel jevity as directed and increased rate to 58 ml hr. PT had bowel movement after rectal suppository reported on day shift. medium brown pasty stool fecal incontinence for this shift. Strict NPO with speech therapy following PT. PT still has sutures at insertion site of gtube. Surgical consult called to DR Greco per day RN Ailyn. PT noncompliant with stroke positioning post CVA he refuses to have rt UE elevated and he neglects it. Medicated with tylenol 650 mg per tube for co pain with helpful effect. PT has asphasia and garbled speech post CVA, irritable at times. Sputum sample sent to lab.
--- NOTE | 2019-07-05 05:24 | NUR ---
PT continues NPO with gastric tube feed cyclic being started at 0030 after obtaining jevity 1.5 magdiel and PT tolerated tube feed without nausea or vomiting. Bowel care given via gastric tube and PT has 1 medium brown pasty stool and 1 medium loose stool. Intermittant hiccups. PTs room air sat greater than 90% Sputum sample sent to lab. PT has gastric tube replaced on last hospitalization and sutures present at peg tube site. Abd tender, PT has coude cath which was changed yesterday drains cloudy urine with sediment. I was told in shift report that gastric tube was not functional but it has 2 lumens the J lumen does not flush or draw but the gastric lumen works. PT irritable at times has asphasia and speech garbled. Refuses stroke positioning rt ue. Neglects rt UE.
[2019-07-05 05:25] LABS: BASOPHILS ABSOLUTE AUTO 0.04 K/mm3 (0.00-0.23); BASOPHILS PERCENT AUTO 1 % (0-2); EOSINOPHILS ABSOLUTE AUTO 0.07 K/mm3 (0.00-0.68); EOSINOPHILS PERCENT AUTO 1 % (0-6); Hematocrit 33.2 % (37.0-53.0); Hemoglobin 10.8 g/dL (13.5-17.5); IMMATURE GRAN ABSOLUTE AUTO 0.03 K/mm3 (0.00-0.10); IMMATURE GRAN PERCENT AUTO 0 % (0-1); LYMPHOCYTES ABSOLUTE AUTO 1.01 K/mm3 (0.84-5.20); LYMPHOCYTES PERCENT AUTO 13 % (21-46); MONOCYTES ABSOLUTE AUTO 0.56 K/mm3 (0.16-1.47); MONOCYTES PERCENT AUTO 7 % (4-13); Mean Corpuscular HGB 31.8 pg (26.0-34.0); Mean Corpuscular HGB Conc 32.5 g/dL (31.5-36.5); Mean Corpuscular Volume 98 fL (80-100); Mean Platelet Volume 10.7 fL (9.1-12.4); NEUTROPHILS ABSOLUTE AUTO 6.18 K/mm3 (1.96-9.15); NEUTROPHILS PERCENT AUTO 78 % (41-73); Platelet Count 170 K/mm3 (150-400); RDW Coefficient Variation 14.7 % (11.7-14.2); RDW Standard Deviation 53.1 fL (35.1-46.3); White Blood Cell Count 7.89 K/mm3 (4.00-11.30)
[2019-07-05 05:51] LABS: Albumin, Blood 2.4 g/dL (3.4-5.0); Anion Gap 6 mmol/L (6-16); Blood Urea Nitrogen 19 mg/dL (8-24); Bun/Creatinine Ratio 24.3 (12.0-20.0); CO2, Blood 28 mmol/L (21-32); Calcium, Blood 8.6 mg/dL (8.5-10.1); Chloride, Blood 103 mmol/L (98-108); Creatinine, Blood 0.78 mg/dL (0.60-1.20); Glomerular Filtration Rate >60 (60-); Glucose, Blood 75 mg/dL (70-99); Phosphorus, Blood 2.7 mg/dL (2.5-4.9); Potassium, Blood 3.5 mmol/L (3.5-5.5); Sodium, Blood 137 mmol/L (136-145)
--- NOTE | 2019-07-05 07:27 | NUR ---
DR Ingram called to say DR Knutson had put feeding tube in and to consult him about function. Dr Stanford to address suture removal too. Ashwin written
--- NOTE | 2019-07-05 17:16 | NUR ---
PATIENT A/OX4, UP WITH 2 ASSIST AND GAIT BELT TO CHAIR. STARTED ON PUREE DIET TODAY WITH ASPIRATION PRECAUTIONS. MEDS CRUSHED IN APPLESAUCE. J-TUBE TO ABDOMEN FLUSHES WELL. PATIENT REPORTS SEVERE PAIN AT TIMES AT INSERTION SITE. FENTANYL AND NORCO ORDERED FOR PAIN. MEPILEX TO PRESSURE ULACER ON COCCYX. R ARM FLACCID, GROSS MOTOR MOVEMENT OF R LEG. SPEECH GARBLED MAKING IT DIFFCULT TO UNDERSTAND. TUBE FEEDS FROM 1700 UNTIL 0100. PATIENT UNABLE TO SLEEP WHILE SITTING UP. CHAVEZ TO GRAVITY, INCONTIENT OF BOWEL. PATIENT IS COOPERATIVE WITH CARE. CAN BE IRRITABLE AT TIMES. CALLS APPROPRIATELY FOR ASSISTANCE.
--- NOTE | 2019-07-06 02:00 | NUR ---
pt TOLERATED CYCLIC TUBE FEED WITH SOME MILD HICCUPS THAT RESOLVED. hIS SPEECH CONTINUES GARBLED AND HE IS DIFFICULT TO UNDERSTAND. DOES COMMUNICATE. MEDICATED FOR ABD PAIN WITH NORCO 1 5/[address] 325 MG TYLENOL. PT IS ON ROOM AIR AND COUGH HAS BEEN PRODUCTIVE AND LOOSE. CLEARED BY SPEECH FOR PUREED DIET NO ATTEMPTS TO EAT OR DRINK TONIGHT. UP TO RECLINER CHAIR REPORTED BY DAY RN. APPEARS IRRITATED AT TIMES WITH COMMUNICATION DEFICIT. ABLE TO USE CALLBELL.
[2019-07-06 05:46] LABS: Anion Gap 6 mmol/L (6-16); Blood Urea Nitrogen 19 mg/dL (8-24); Bun/Creatinine Ratio 27.5 (12.0-20.0); CO2, Blood 29 mmol/L (21-32); Calcium, Blood 8.6 mg/dL (8.5-10.1); Chloride, Blood 103 mmol/L (98-108); Creatinine, Blood 0.69 mg/dL (0.60-1.20); Glomerular Filtration Rate >60 (60-); Glucose, Blood 101 mg/dL (70-99); Phosphorus, Blood 3.3 mg/dL (2.5-4.9); Potassium, Blood 3.7 mmol/L (3.5-5.5); Sodium, Blood 138 mmol/L (136-145)
[2019-07-06] MEDS ORDERED: DOCU LIQUI50 MG/5 ML PT (12:29)
[2019-07-06] MEDS ORDERED: MIRALAX17 GM PT (12:29)
[2019-07-06] MEDS ORDERED: ALBU2.5V5 INH (12:29)
[2019-07-06] MEDS ORDERED: METR500 PT (12:30)
[2019-07-06] MEDS ORDERED: AZIT500 PT (12:30)
[2019-07-06] MEDS ORDERED: CEFU500T30 PT (12:30)
--- NOTE | 2019-07-06 17:15 | NUR ---
PATIENT D/C'D TO [facility] VIA [facility]. REPORT CALLED TO HARESH NURSE AT [facility]. PACKET GIVEN TO SUPPORT TEAM MEMBER. BELONGINGS TAKEN HOME BY . PATIENT DENIES ANY QUESTIONS OR CONCERNS. ABDOMEN STILL PAINFUL, BUT MUCH IMPROVED AFTER SUTURES REMOVED BY DR. CABRERA THIS EVENING.
== END 2019-07-06 17:14 | DRG 871 ==
LOC: ER 01:06 → ERHOLD 06:00 → MEDS 06:00
PROVIDERS: Emergency Medicine; Internal Medicine; ADMIT Family Medicine
DX: A41.9 Sepsis, unspecified organism (principal); J69.0 Pneumonitis due to inhalation of food and vomit; E43 Unspecified severe protein-calorie malnutrition; I69.351 Hemiplegia and hemiparesis following cerebral infarction affecting right dominant side; R64 Cachexia; Z68.1 Body mass index [BMI] 19.9 or less, adult; E87.1 Hypo-osmolality and hyponatremia; J44.9 Chronic obstructive pulmonary disease, unspecified; Z87.891 Personal history of nicotine dependence; I10 Essential (primary) hypertension; N40.0 Benign prostatic hyperplasia without lower urinary tract symptoms; N31.9 Neuromuscular dysfunction of bladder, unspecified; Z93.1 Gastrostomy status; I69.391 Dysphagia following cerebral infarction
CPT/HCPCS: 0099U; 36415; 71046; 74176; 74230; 80048; 80053; 80069; 81001; 82947; 83605; 83690; 83735; 83880; 84100; 84484; 85025; 87040; 87086; 92526; 92611; 93005; 93010; 96361; 96365; 96375; 99285-25; A9270; A9270-GY; J0456; J0696; J1650; J2405; J3010; J7030; J7050; J7120

== ENCOUNTER 2019-11-01 23:21 | Inpatient (IN) | payer MEDICARE, OTHER ==
[~2019-11-01] VITALS: Ht 172.7 cm; Wt 50.4 kg
[~2019-11-01 23:21] MED LIST changes: +ALBU2.5V5 INH; +AZIT500 PT; +CEFU500T30 PT; +DOCU LIQUI50 MG/5 ML PT; +METR500 PT; +MIRALAX17 GM PT; +Nicoderm Cq1 EAC1 TOP; +Norco 5-325 Ta1 EACH PO; +[UNRECOGNIZED DRUG - OTHER] PT
[2019-11-02 00:17] LABS: BASOPHILS ABSOLUTE AUTO 0.03 K/mm3 (0.00-0.23); BASOPHILS PERCENT AUTO 0 % (0-2); EOSINOPHILS ABSOLUTE AUTO 0.01 K/mm3 (0.00-0.68); EOSINOPHILS PERCENT AUTO 0 % (0-6); Hematocrit 51.9 % (37.0-53.0); Hemoglobin 17.3 g/dL (13.5-17.5); IMMATURE GRAN ABSOLUTE AUTO 0.05 K/mm3 (0.00-0.10); IMMATURE GRAN PERCENT AUTO 0 % (0-1); LYMPHOCYTES ABSOLUTE AUTO 1.28 K/mm3 (0.84-5.20); LYMPHOCYTES PERCENT AUTO 8 % (21-46); MONOCYTES ABSOLUTE AUTO 1.49 K/mm3 (0.16-1.47); MONOCYTES PERCENT AUTO 10 % (4-13); Mean Corpuscular HGB 30.8 pg (26.0-34.0); Mean Corpuscular HGB Conc 33.3 g/dL (31.5-36.5); Mean Corpuscular Volume 92 fL (80-100); NEUTROPHILS PERCENT AUTO 81 % (41-73); Platelet Count 236 K/mm3 (150-400); RDW Coefficient Variation 13.2 % (11.7-14.2); RDW Standard Deviation 45.1 fL (35.1-46.3); Red Blood Cell Count 5.62 M/mm3 (4.30-5.90); White Blood Cell Count 15.26 K/mm3 (4.00-11.30)
[2019-11-02 00:32] LABS: Alanine Aminotransfer (ALT/SGP 40 U/L (12-78); Albumin, Blood 4.3 g/dL (3.4-5.0); Alk Phos 82 U/L (50-136); Anion Gap 8 mmol/L (6-16); Aspartate Aminotrans (AST/SGOT 23 U/L (12-37); Bilirubin, Total 1.4 mg/dL (0.1-1.0); Blood Urea Nitrogen 19 mg/dL (8-24); Bun/Creatinine Ratio 20.6 (12.0-20.0); CO2, Blood 26 mmol/L (21-32); Calcium, Blood 10.2 mg/dL (8.5-10.1); Chloride, Blood 105 mmol/L (98-108); Creatinine, Blood 0.92 mg/dL (0.60-1.20); Globulin, Blood 4.2 g/dL (2.2-4.0); Glomerular Filtration Rate >60 (60-); Glucose, Blood 159 mg/dL (70-99); Potassium, Blood 3.9 mmol/L (3.5-5.5); Sodium, Blood 139 mmol/L (136-145); Total Protein, Blood 8.5 g/dL (6.4-8.2); Troponin I <0.015 ng/mL (0.000-0.040)
--- NOTE | 2019-11-02 05:11 | NUR ---
UPDATE DR RODRIGUEZ NOTIFIED OF PATIENT'S ELEVATED BLOOD PRESSURE. DR RODRIGUEZ STATED SHE WOULD ENTER ORDERS.
--- NOTE | 2019-11-02 07:46 | NUR ---
ADMIT NOTE/SHIFT SUMMARY PATIENT ADMITED TO THE FLOOR FROM THE ER, PATIENT WAS SLID OVER FROM THE GURNEY TO THE BED VIA SLIDER SHEET. PATIENT HAS MINIMAL MOVMENT TO RIGHT ARM AND LEG DUE TO A HISTORY OF A STROKE. PATIENT ALSO HAS DIFFICULTY WITH SPEECH AND FINDING WORDS DUE TO THE STORKE WELL. PATIENT IRRITABLE AND GETS FRUSTRATED QUICKLY WHEN HE HAS DIFFICULTY MAKING HIS NEEDS KNOWN. PATIENT ALSO FRUSTRATED ABOUT BEING NPO AT THIS TIME EVEN THOUGH PATIENT EDUCATED ON SBO AND REASON BEHIND NPO STATUS. MOUTH SWABS OFFERED, PATIENT REFUSED THEM. ADMIT COMPLETED BEST POSSIBLE GIVEN PATIENT'S DIFFICULTY WITH SPEECH. DAY SHIFT AWARE THAT HOME MEDS NEED TO BE VERIFIED WITH PATIENT'S . PATIENT FRUSTRATED WELL THAT HE HAS BEEN UNABLE TO SLEEP DUE TO INTERUPTIONS BY STAFF PERFORMING CARE. ATTEMPTED TO ALLOW PATIENT TO SLEEP UNINTERUPTED FOR SEVERAL HOURS THIS MORNING. IV FLUIDS RUNNING PER ORDERS. VITAL SIGNS CHARTED. PATIENT CURRENTLY APPEARS TO BE ASLEEP. REPORT GIVEN TO ONCOMING RN.
--- NOTE | 2019-11-02 12:08 | NUR ---
NG DRAINING THICK BROWN LIQUID FROM NG TUBE TO LOW INTERMITTENT WALL SUCTION. PT TOELRATING NG WELL
[2019-11-02 13:47] LABS: Source, Urine Catheter
[2019-11-02 13:56] LABS: Bilirubin, Urine Neg (Neg); Blood, Urine 3+ (Neg); Glucose Qualitative, Urine Neg (Neg); Ketones, Urine 1+ (Neg); Leukocyte Esterase, Urine 3+ (Neg); Nitrite, Urine Pos (Neg); Protein, Urine 2+ (Neg); Urobilinogen, Urine NORM (Normal)
[2019-11-02 14:11] LABS: Appearance, Urine Clear (Clear); Color, Urine Yellow (P-Yellow)
[2019-11-02 14:12] LABS: White Blood Cells, Urine TNTC /hpf (0-5)
[2019-11-02 14:13] LABS: Bacteria Mod /hpf; Squamous Epithelial Cells Few /hpf (Few)
--- NOTE | 2019-11-02 18:25 | NUR ---
SHIFT NOTE PT HAD NG PLACES THIS AM AFTER SPEAKING WITH DR JOINER. NG WAS PLACED AND HAD A SMALL AMT OF BROWN DRAINAGE, AFTER SPEAKING WITH DR JOINER LATER DECISION WAS MADE TO PLACE CHAVEZ AND BEGIN LACTATED RINGERS AT 150/HR. GOOD URINE OUTPUT THAT IS DRAINING WELL TO GRAVITY. DECISION WAS MADE TO PLACE A RECTAL TUBE AFTER SPEAKING WITH DR GAMBINO PT WAS HAVING VERY WATERY STOOLS, RECTAL TUBE IS DRAINING WELL TO GRAVITY AT THIS TIME. PT WITH BASELINE RT SIDED DEFICIT FROM A CVA EARLIER THIS YEAR WHICH HE WAS JUST RELEASED FROM REHAB FROM. PT'S WAS UPDATED. DR JOINER WILL REASSESS TOMORROW
--- NOTE | 2019-11-03 07:20 | NUR ---
SHIFT SUMMARY PT A&O W/ FLAT, IRRITABLE AFFECT. VSS. MONITOR SHOWS NSR, HR 80's. SPO2 > 92% ON 1.5L NC. PT W HICCUPS T/O SHIFT & C/O NAUSEA, MEDICATED PER EMAR X2 THIS SHIFT. NGT W/ LOW INT SUCTION DRAINING DARK BROWN LIQUID OUTPUT. RECTAL TUBE DRAINING LIQUID BROWN STOOL. CHAVEZ CATH DRAINING YELLOW URINE. LR GTT INFUSING PER ORDERS. PT NPO, VERBALIZING FRUSTRATION W/ NPO STATUS. PT FURTHER VERBALIZING DESIRE TO GO HOME. REPORT GIVEN TO DAY SHIFT RN.
[2019-11-03 13:37] LABS: BASOPHILS ABSOLUTE AUTO 0.04 K/mm3 (0.00-0.23); BASOPHILS PERCENT AUTO 0 % (0-2); EOSINOPHILS ABSOLUTE AUTO 0.04 K/mm3 (0.00-0.68); EOSINOPHILS PERCENT AUTO 0 % (0-6); Hematocrit 39.2 % (37.0-53.0); Hemoglobin 13.1 g/dL (13.5-17.5); IMMATURE GRAN ABSOLUTE AUTO 0.04 K/mm3 (0.00-0.10); IMMATURE GRAN PERCENT AUTO 0 % (0-1); LYMPHOCYTES PERCENT AUTO 13 % (21-46); MONOCYTES ABSOLUTE AUTO 1.15 K/mm3 (0.16-1.47); MONOCYTES PERCENT AUTO 9 % (4-13); Mean Corpuscular HGB 31.3 pg (26.0-34.0); Mean Corpuscular HGB Conc 33.4 g/dL (31.5-36.5); Mean Corpuscular Volume 94 fL (80-100); Mean Platelet Volume 10.6 fL (9.1-12.4); NEUTROPHILS ABSOLUTE AUTO 9.88 K/mm3 (1.96-9.15); NEUTROPHILS PERCENT AUTO 77 % (41-73); Platelet Count 166 K/mm3 (150-400); RDW Coefficient Variation 13.4 % (11.7-14.2); RDW Standard Deviation 46.3 fL (35.1-46.3); Red Blood Cell Count 4.19 M/mm3 (4.30-5.90); White Blood Cell Count 12.85 K/mm3 (4.00-11.30)
[2019-11-03 13:58] LABS: Anion Gap 4 mmol/L (6-16); Blood Urea Nitrogen 15 mg/dL (8-24); CO2, Blood 28 mmol/L (21-32); Chloride, Blood 108 mmol/L (98-108); Creatinine, Blood 0.88 mg/dL (0.60-1.20); Glomerular Filtration Rate >60 (60-); Glucose, Blood 96 mg/dL (70-99); Potassium, Blood 3.8 mmol/L (3.5-5.5); Sodium, Blood 140 mmol/L (136-145)
--- NOTE | 2019-11-03 18:40 | NUR ---
REPORT CALLED TO MARIELY ON MEDICAL FLOOR. PT HAS ZOSYN RUNNING IVPB PER ORDERS. RECTAL RUBE REMAINS IN PLACE WHICH IS DRAINING WELL, CHAVEZ DRAINING WELL TO GRAVITY. NG REMAINS CLMAPED IN LEUI OF REPEAT IMAGING IN THE AM R/T IODINE CONTRAST. MEDICAL FLOOR RN MADE AWARE OF THESE PENDING PROCEDURES. PT ALERT, ANSWERING QUESTIONS WITH GARBLED SPEECH
--- NOTE | 2019-11-03 23:46 | NUR ---
PT HAVING HICCUPS ALMOST NONSTOP. PT NPO. MD NOTIFIED AND ORDERED BENADRYL 50 MG IV ONCE. CALL LIGHT IN REACH
--- NOTE | 2019-11-04 01:33 | NUR ---
PT RECEIVED bENADRYL 50 MG IV PER MD ORDERS. HICCUPS CONTINUE BUT LESS OFTEN THAN PREVIOUS. IVF INFUSING. CALL LIGHT IN REACH
--- NOTE | 2019-11-04 03:19 | NUR ---
SHIFT SUMMARY PT CAME TO FLOOR FROM THE PCU WITH SMALL BOWEL OBSTRUCTION DX. NPO WITH NG TUBE CLAMPED AND RECTAL TUBE FOR LOOSE STOOL. CHAVEZ DRAINING. AWAKE AT INTERVALS WITH HICCUPS, WAS NOTIFIED EARLIER AND ORDERED BENADRYL IV X 1 TO ADDRESS SAID HICCUPS, MED SLIGHTLY EFFECTIVE HICCUPS HAVE RETURNED OF THIS WRITING. DROPLET PRECAUTIONS MAINTAINED. CALL LIGHT IN REACH. IVF AND ANTIBIOTICS INFUSING PER MAR. CALL LIGHT IN REACH
[2019-11-04 05:04] LABS: BASOPHILS ABSOLUTE AUTO 0.04 K/mm3 (0.00-0.23); BASOPHILS PERCENT AUTO 0 % (0-2); EOSINOPHILS ABSOLUTE AUTO 0.16 K/mm3 (0.00-0.68); EOSINOPHILS PERCENT AUTO 1 % (0-6); Hematocrit 41.4 % (37.0-53.0); Hemoglobin 13.4 g/dL (13.5-17.5); IMMATURE GRAN ABSOLUTE AUTO 0.04 K/mm3 (0.00-0.10); IMMATURE GRAN PERCENT AUTO 0 % (0-1); LYMPHOCYTES ABSOLUTE AUTO 1.65 K/mm3 (0.84-5.20); LYMPHOCYTES PERCENT AUTO 15 % (21-46); MONOCYTES ABSOLUTE AUTO 1.15 K/mm3 (0.16-1.47); MONOCYTES PERCENT AUTO 10 % (4-13); Mean Corpuscular HGB 30.7 pg (26.0-34.0); Mean Corpuscular HGB Conc 32.4 g/dL (31.5-36.5); Mean Corpuscular Volume 95 fL (80-100); Mean Platelet Volume 11.2 fL (9.1-12.4); NEUTROPHILS ABSOLUTE AUTO 8.18 K/mm3 (1.96-9.15); NEUTROPHILS PERCENT AUTO 73 % (41-73); Platelet Count 169 K/mm3 (150-400); RDW Coefficient Variation 13.3 % (11.7-14.2); RDW Standard Deviation 47.4 fL (35.1-46.3); Red Blood Cell Count 4.36 M/mm3 (4.30-5.90); White Blood Cell Count 11.22 K/mm3 (4.00-11.30)
[2019-11-04 05:23] LABS: Anion Gap 6 mmol/L (6-16); Blood Urea Nitrogen 17 mg/dL (8-24); Bun/Creatinine Ratio 20.7 (12.0-20.0); CO2, Blood 26 mmol/L (21-32); Calcium, Blood 9.2 mg/dL (8.5-10.1); Chloride, Blood 111 mmol/L (98-108); Creatinine, Blood 0.82 mg/dL (0.60-1.20); Glomerular Filtration Rate >60 (60-); Glucose, Blood 77 mg/dL (70-99); Potassium, Blood 3.2 mmol/L (3.5-5.5); Sodium, Blood 143 mmol/L (136-145)
--- NOTE | 2019-11-04 17:39 | NUR ---
SUMMARY PT HAS HX CVA, HE IS APHASIC, SPEECH GARBLED, VERY DIFFICULT TO UNDERSTAND/MAKE NEEDS KNOWN. HE STATE NO FEELING R SIDE, ARM & LEG FLACCID/NUMB, R SIDE OF FACE NUMB. DX SBO, DR JOINER (GI) HAS BEEN CONSULTED. THIS AM PT WAS NPO w NGT CLAMPED, AWAITING COMPLETION OF SM BOWEL FOLLOW THRU. AFTER COMPLETION DR JOINER REVIEW, STATE RESOLVING. ORDER REMOVE NGT & START CL DIET. PT HAS TOLERATED WELL. THIS AFTERNOON DR JOINER CALL, ORDER FL DIET & REMOVE RECTAL TUBE. PT CALL, UPDATED ON PROGRESS. PT HAS HAD HICCUPS MUCH OF DAY, STATE ONGOING X [address] GAMBINO HAD HOPED THIS WOULD RESOLVE ONCE NGT REMOVED HOWEVER CONTINUES, SHE ORDER THORAZINE PRN FOR RELIEF. CHAVEZ CATH CONTINUES @ THIS TIME. ? UTI, IV ANTIBX CONTINUE. LR INFUSING @ 150 ML/HR. PT HAD N/V PRIOR TO ADMIT, NONE SO FAR TODAY HOWEVER K+ LOW THIS AM, DR GAMBINO ORDER K-RIDER. BT +. SM AMT LOOSE LIQUID STOOL, DR JOINER STATE PROBABLY R/T CONTRAST USED DURING SBFT, SHOULD RESOLVE WITH TIME. PT AFFECT MUCH IMPROVED w REMOVAL OF NG & RECTAL TUBES.
--- NOTE | 2019-11-04 19:28 | NUR ---
AWAKE AT SHIFT CHANGE, AFFECT MORE CHEERFUL THAN NOTED YESTERDAY. TOLERATING PO FLUIDS WELL. CALL LIGHT IN REACH,
--- NOTE | 2019-11-05 00:46 | NUR ---
AWAKE AT INTERVALS EARLIER WITH HICCUPS. IVF FLUIDS AND ANTIBIOTICS INFUSING PER MD ORDERS - SEE MAR FOR DETAILS. ENCOURAGED PO FLUIDS FOR HICCUPS, EFFECTIVE, RESTING QUIETLY AT THIS TIME. CALL LIGHT IN REACH. DROPLET PRECAUTIONS MAINTAINED.
[2019-11-05] MEDS ORDERED: ZOLOFT25 MG PO (10:18)
--- NOTE | 2019-11-05 19:36 | NUR ---
SUMMARY PT CONTINUES TO IMPROVE. SBO RESOLVED. DR JOINER FOLLOWING. DIET ADV TO SOFT FINGER FOODS. HIS BROUGHT IN HIS DENTURES THIS AFTERNOON, HE TOLERATED DINNER WELL. NO ABDOMINAL DISCOMFORT T/O DAY. SM AMTS LOOSE STOOL HOWEVER IMPROVING STARTING TO FIRM. DR GAMBINO STATE POSSIBLE D/C HOME TOMORROW IF PT IS @ BASELINE STRENGTH. HE WAS ABLE TO DEMONSTRATE SELF TRANSFER TO W/C w MINIMAL ASSIST, HE STATE BASELINE, APPEARS ABLE. CHAVEZ CATH D/C TODAY W/O RETENTION, HE USES URINAL. AWARE POSSIBLE D/C HOME TOMORROW, BROUGHT HIM CHANGE OF CLOTHES. HE IS PLEASANT/COOPERATIVE, APHASIC BUT ABLE TO MAKE BASIC NEEDS KNOWN. VSS.
--- NOTE | 2019-11-05 22:02 | NUR ---
DROPLET PRECAUTIONS CONTINUE. ALERT AND OREINTED, MORE VOCAL, SPEECH STILL GARBLED, BUT PT USING HAND GESTURES TO EMPHASIZE HIS COMMUNICATION. CALL LIGHT IN DIMITRI. TOLERATING PO ANTIBIOTICS. CALL LIGHT IN REACH.
--- NOTE | 2019-11-06 04:27 | NUR ---
SHIFT SUMMARY AWAKE AT INTERVALS THIS SHIFT. HICCUPS SEEM TO BE LESS THIS SHIFT THAN 24 HR PREVIOUS. BP ELEVATED, ANTIHYPERTENSIVE MED GIVEN EARLIER, WILL REASSESS TO SEE IF EFFECTIVE - SEE DOC FLOW SHEETS FOR FOLLOW UP RESULTS. DROPLET PRECAUTIONS CONTINUE. CALL LIGHT IN REACH.
--- NOTE | 2019-11-06 05:55 | NUR ---
PT HAS REQUESTED THAT ALL 4 BED RAILS BE UP TO ASSIST HIM WITH MOVING IN BED AND TO ASSIST WITH KEEPING HIS RIGHT LEG IN BED. NURSE NOTIFIED.
[2019-11-06] MEDS ORDERED: ACET325 PO (13:51)
[2019-11-06] MEDS ORDERED: AMOCLA500 PO (13:52)
[2019-11-06] MEDS ORDERED: CHLO25A PO (14:00)
[2019-11-06] MEDS ORDERED: LACT PO (15:56)
== END 2019-11-06 17:33 | disposition home or self-care (01) | DRG 871 ==
LOC: ER 23:21 → PCU 11-02 01:35 → MEDS 11-03 20:00
PROVIDERS: Emergency Medicine; Surgery; ADMIT Family Medicine
DX: A41.9 Sepsis, unspecified organism (principal); E43 Unspecified severe protein-calorie malnutrition; J69.0 Pneumonitis due to inhalation of food and vomit; K56.609 Unspecified intestinal obstruction, unspecified as to partial versus complete obstruction; I69.351 Hemiplegia and hemiparesis following cerebral infarction affecting right dominant side; I10 Essential (primary) hypertension; J44.9 Chronic obstructive pulmonary disease, unspecified; Z87.891 Personal history of nicotine dependence; R65.20 Severe sepsis without septic shock
CPT/HCPCS: 36415; 51702; 70450; 71046; 74022; 74176; 74250; 80048; 80053; 81001; 83605; 83690; 83880; 83970; 84484; 85025; 87040; 93005; 93010; 94760; 96361; 96374; 96375; 99285-25; C9113; J0360; J1200; J2405; J2543; J2550; J3010; J3480; J7030; J7050; J7120

== ENCOUNTER 2019-11-07 20:14 | Inpatient (IN) | payer MEDICARE, OTHER ==
[~2019-11-07] VITALS: Ht 175.3 cm; Wt 51.5 kg
[~2019-11-07 20:14] MED LIST changes: +ACET325 PO; +AMOCLA500 PO; +CHLO25A PO; +LACT PO; +ZOLOFT25 MG PO
[2019-11-07 20:38] LABS: BASOPHILS ABSOLUTE AUTO 0.04 K/mm3 (0.00-0.23); BASOPHILS PERCENT AUTO 0 % (0-2); EOSINOPHILS ABSOLUTE AUTO 0.07 K/mm3 (0.00-0.68); EOSINOPHILS PERCENT AUTO 1 % (0-6); Hematocrit 50.3 % (37.0-53.0); Hemoglobin 16.7 g/dL (13.5-17.5); IMMATURE GRAN ABSOLUTE AUTO 0.06 K/mm3 (0.00-0.10); IMMATURE GRAN PERCENT AUTO 1 % (0-1); LYMPHOCYTES ABSOLUTE AUTO 3.84 K/mm3 (0.84-5.20); LYMPHOCYTES PERCENT AUTO 31 % (21-46); MONOCYTES ABSOLUTE AUTO 1.13 K/mm3 (0.16-1.47); MONOCYTES PERCENT AUTO 9 % (4-13); Mean Corpuscular HGB 30.5 pg (26.0-34.0); Mean Corpuscular HGB Conc 33.2 g/dL (31.5-36.5); Mean Platelet Volume 10.3 fL (9.1-12.4); NEUTROPHILS ABSOLUTE AUTO 7.23 K/mm3 (1.96-9.15); NEUTROPHILS PERCENT AUTO 59 % (41-73); Platelet Count 275 K/mm3 (150-400); RDW Coefficient Variation 13.3 % (11.7-14.2); RDW Standard Deviation 45.4 fL (35.1-46.3); Red Blood Cell Count 5.48 M/mm3 (4.30-5.90); White Blood Cell Count 12.37 K/mm3 (4.00-11.30)
[2019-11-07 20:39] LABS: Mean Corpuscular Volume 92 fL (80-100)
[2019-11-07 20:57] LABS: Alanine Aminotransfer (ALT/SGP 23 U/L (12-78); Albumin, Blood 3.5 g/dL (3.4-5.0); Albumin/Globulin Ratio 0.8 (0.8-1.8); Alk Phos 60 U/L (50-136); Anion Gap 8 mmol/L (6-16); Aspartate Aminotrans (AST/SGOT 13 U/L (12-37); Bilirubin, Total 1.2 mg/dL (0.1-1.0); Blood Urea Nitrogen 10 mg/dL (8-24); Bun/Creatinine Ratio 11.5 (12.0-20.0); CO2, Blood 27 mmol/L (21-32); Calcium, Blood 9.8 mg/dL (8.5-10.1); Chloride, Blood 103 mmol/L (98-108); Creatinine, Blood 0.87 mg/dL (0.60-1.20); Globulin, Blood 4.5 g/dL (2.2-4.0); Glomerular Filtration Rate >60 (60-); Glucose, Blood 106 mg/dL (70-99); Potassium, Blood 3.5 mmol/L (3.5-5.5); Sodium, Blood 138 mmol/L (136-145); Troponin I <0.015 ng/mL (0.000-0.040)
--- NOTE | 2019-11-08 03:11 | NUR ---
ADMISSION: PATIENT ARRIVED TO [facility] AT APPROX 0010 VIA GURNEY FROM ER, PATIENT SLIDE TRANSFER TO BED D/T WEAKNESS AND TO CHRONIC RIGHT SIDED DEFECIT FROM PREVIOUS CVA. PATIENT ALERT AND ORIENTED BUT SPEECH IS HEAVILY SLURRED AND HARD TO UNDERSTAND. PATIENT DISPLAYS FRUSTRATION AT COMMUNICATION DIFFICULTY BUT REFUSING A SPEECH BOARD. RIGHT HAND/ARM IS FLACCID AND PATIENT REPORTS NO SENSATION. PATIENT RIGHT LEG/FOOT ALSO IS DEVOID OF SENSATION AND PATIENT IS UNABLE TO PRODUCE MOVEMENT, THE TOES HOWEVER TWITCH OCCASIONALLY WITH PATIENT INDICATING HE HAS NO CONTROL OVER THE MOVEMENT. PATIENT HAS RIGHT SIDED FACIAL DROOP AND RIGHT SIDED TONGUE DEVIATION. PATIENTS SKIN IS INTACT AND ATTENDS ARE IN PLACE. PATIENT ADMISSION AND ASSESSMENT COMPLETED AND PATIENT ORIENTED TO ROOM, CALL LIGHT AND HOSPITAL POLICIES. BED LOW AND LOCKED, PATIENT NPO, CALL LIGHT WITHIN REACH. PATIENT REFUSING HIS LOVENOX INJECTION.
--- NOTE | 2019-11-08 06:48 | NUR ---
PATIENT HAS REFUSED REPOSITIONING TWICE IN THE LAST 2 HOURS. PATIENT IS DIFFICULT TO UNDERSTAND AND ALSO REFUSED OTHER METHODS TO OF COMMUNICATION.
[2019-11-08 07:10] LABS: BASOPHILS ABSOLUTE AUTO 0.02 K/mm3 (0.00-0.23); BASOPHILS PERCENT AUTO 0 % (0-2); EOSINOPHILS PERCENT AUTO 0 % (0-6); Hematocrit 41.8 % (37.0-53.0); Hemoglobin 13.7 g/dL (13.5-17.5); IMMATURE GRAN PERCENT AUTO 1 % (0-1); LYMPHOCYTES ABSOLUTE AUTO 1.04 K/mm3 (0.84-5.20); LYMPHOCYTES PERCENT AUTO 9 % (21-46); MONOCYTES ABSOLUTE AUTO 0.77 K/mm3 (0.16-1.47); MONOCYTES PERCENT AUTO 7 % (4-13); Mean Corpuscular HGB 30.4 pg (26.0-34.0); Mean Corpuscular HGB Conc 32.8 g/dL (31.5-36.5); Mean Corpuscular Volume 93 fL (80-100); Mean Platelet Volume 10.4 fL (9.1-12.4); NEUTROPHILS PERCENT AUTO 83 % (41-73); Platelet Count 231 K/mm3 (150-400); RDW Coefficient Variation 13.4 % (11.7-14.2); RDW Standard Deviation 45.8 fL (35.1-46.3); Red Blood Cell Count 4.51 M/mm3 (4.30-5.90); White Blood Cell Count 11.13 K/mm3 (4.00-11.30)
[2019-11-08 07:27] LABS: Alanine Aminotransfer (ALT/SGP 17 U/L (12-78); Albumin, Blood 2.9 g/dL (3.4-5.0); Albumin/Globulin Ratio 0.7 (0.8-1.8); Alk Phos 46 U/L (50-136); Anion Gap 5 mmol/L (6-16); Aspartate Aminotrans (AST/SGOT 13 U/L (12-37); Bilirubin, Total 1.2 mg/dL (0.1-1.0); Blood Urea Nitrogen 12 mg/dL (8-24); CO2, Blood 26 mmol/L (21-32); Calcium, Blood 9.1 mg/dL (8.5-10.1); Chloride, Blood 107 mmol/L (98-108); Creatinine, Blood 0.86 mg/dL (0.60-1.20); Glomerular Filtration Rate >60 (60-); Glucose, Blood 144 mg/dL (70-99); Potassium, Blood 4.7 mmol/L (3.5-5.5); Sodium, Blood 138 mmol/L (136-145); Total Protein, Blood 6.9 g/dL (6.4-8.2)
[2019-11-08 07:34] LABS: International Normalized Ratio 1.04; Prothrombin Time Results 11.1 Sec (9.7-11.5)
--- NOTE | 2019-11-08 13:00 | NUR ---
PT STATUS CHANGED TO SURGICAL WITH TELE. PT IS ALERT, SPEECH SLURRED, HARD TO UNDERSTAND, HX CVA RIGHT SIDE DEFICIT. STRICTLY NPO. VITALS HAS BEEN STABLE HRR NSR AT 80'S-90'S, BP SYSTOLIC 130'S, AFEBRILE, CANDI ABOVE 95% ON 4L OF O2. PT STILL HAS MOIST PRODUCTIVE COUGH, PT SELF SUCTIONS. PT UNABLE TO MOVE RIGHT SIDE BUT PT IS ABLE TO USE LEFT HAND TO MOVE RIGHT ARM AND LEG. PT WAS STARTED ON CLINIMIX PER ORDER. CONTINUES ON IV ABO FOR PNEUMONITIS. CT OF ABDOMEN DONE FOR THE SHIFT, PT STILL HAS SMALL BOWEL OBSTRUCTION. PT TURNED Q2HRS IN BED, ATTENDS IN PLACE. REPORT GIVEN TO NOEMÍ VALDIVIA, PT TRANSFERRED TO ROOM 339 ALL BELONGINGS SENT WITH PT.
--- NOTE | 2019-11-08 15:53 | NUR ---
met with patient having significan abdominal pain. poor eye contact frowning aggitatied, guarded does now want to talk because of pain will contact family. notified physician of pain dillaudid ordered. will montitor for tolerance.
--- NOTE | 2019-11-08 18:00 | NUR ---
SHIFT SUMMARY PT WAS A PCU TRANSFER TO ROOM 339 VIA BED THIS AFTERNOON. PT HAS HAD NO COMPLAINTS OF SHORTNESS OF BREATH. MEDICATED FOR ABDOMINAL PAIN AND PT HAS BEEN SLEEPING. NO ACUTE CHANGES AT THIS TIME. WILL CONTINUE TO MONITOR AND REPORT TO ONCOMING RN. CALL LIGHT IN REACH.
--- NOTE | 2019-11-09 04:44 | NUR ---
O2 SATS PT BEGAN TO HAVE MOIST SOUNDING COUGH, SOUNDING LIKE LARGE AMOUNTS OF SPUTUM THAT PT WAS UNABLE TO COUGH UP. PT WITH VERY WEAK COUGH. PT SELF SUCTIONING, GREEN BILE LIKE FLUID IN SUCTION CANISTER. WHEN ASKED, PT DENIES VOMITING BUT CANISTER APPEARS TO HAVE A SMALL AMOUNT OF BILE LIKE EMESIS IN IT. O2 SATS DROPPED DOWN IN TO THE LOW TO MID 80'S. FIRST ATTEMPTED TO SWITCH PT TO OXYMIZER, TURNED UP TO 15 L PT REMAINED BELOW 90% IN THE MID TO HIGH 80'S. TRIED SWITCHING PT TO NON REBREATHER. PT'S O2 SATS REMAINED THE SAME. RT UP TO NT SUCTION PT. LARGE AMOUNTS OF THICK GREEN SPUTUM SUCTIONED FROM PT. LUNG SOUNDS IMPROVED. HOWEVER, O2 SATS REMAINED BELOW 90%. PT AT THIS TIME REFUSED BIPAP. NOTFIED DR. BARBOUR. TOLD BY TO HAVE RT COME UP AGAIN AND TRY TO CONVINCE PT TO WEAR BIPAP, AND THAT OTHERWISE THERE WAS NOTHING ELSE HE COULD DO FOR HIM. WHEN REAPPROACHED, PT AGREED TO WEAR THE BIPAP. PT PLACED ON BIPAP WITH 15 L BLEED IN. O2 SATS IN THE LOW 90'S.
[2019-11-09 05:59] LABS: BASOPHILS ABSOLUTE AUTO 0.01 K/mm3 (0.00-0.23); BASOPHILS PERCENT AUTO 0 % (0-2); Hemoglobin 14.2 g/dL (13.5-17.5); LYMPHOCYTES ABSOLUTE AUTO 1.02 K/mm3 (0.84-5.20); LYMPHOCYTES PERCENT AUTO 12 % (21-46); MONOCYTES ABSOLUTE AUTO 1.06 K/mm3 (0.16-1.47); MONOCYTES PERCENT AUTO 13 % (4-13); Mean Corpuscular HGB 30.6 pg (26.0-34.0); Mean Corpuscular HGB Conc 32.3 g/dL (31.5-36.5); Mean Corpuscular Volume 95 fL (80-100); RDW Coefficient Variation 13.8 % (11.7-14.2); RDW Standard Deviation 47.8 fL (35.1-46.3); Red Blood Cell Count 4.64 M/mm3 (4.30-5.90); White Blood Cell Count 8.25 K/mm3 (4.00-11.30)
[2019-11-09 06:05] LABS: EOSINOPHILS ABSOLUTE AUTO 0.02 K/mm3 (0.00-0.68); EOSINOPHILS PERCENT AUTO 0 % (0-6); IMMATURE GRAN ABSOLUTE AUTO 0.02 K/mm3 (0.00-0.10); IMMATURE GRAN PERCENT AUTO 0 % (0-1); Mean Platelet Volume 11.7 fL (9.1-12.4); NEUTROPHILS ABSOLUTE AUTO 6.12 K/mm3 (1.96-9.15); NEUTROPHILS PERCENT AUTO 74 % (41-73); Platelet Count 202 K/mm3 (150-400)
[2019-11-09 06:16] LABS: Alanine Aminotransfer (ALT/SGP 18 U/L (12-78); Albumin, Blood 3.1 g/dL (3.4-5.0); Albumin/Globulin Ratio 0.7 (0.8-1.8); Alk Phos 46 U/L (50-136); Anion Gap 6 mmol/L (6-16); Aspartate Aminotrans (AST/SGOT 15 U/L (12-37); Bilirubin, Total 0.9 mg/dL (0.1-1.0); Blood Urea Nitrogen 25 mg/dL (8-24); Bun/Creatinine Ratio 26.4 (12.0-20.0); CO2, Blood 28 mmol/L (21-32); Calcium, Blood 8.8 mg/dL (8.5-10.1); Chloride, Blood 104 mmol/L (98-108); Creatinine, Blood 0.95 mg/dL (0.60-1.20); Globulin, Blood 4.2 g/dL (2.2-4.0); Glomerular Filtration Rate >60 (60-); Glucose, Blood 110 mg/dL (70-99); Potassium, Blood 4.5 mmol/L (3.5-5.5); Sodium, Blood 138 mmol/L (136-145); Total Protein, Blood 7.3 g/dL (6.4-8.2)
--- NOTE | 2019-11-09 06:23 | NUR ---
SHIFT SUMMARY PT'S OXYGEN REQUIREMENTS INCREASING THIS EVENING. SEE PREVIOUS NOTE. TITRATED PT DOWN TO 7 L BLEEDIN ON BIPAP SINCE PLACED ON. O2 SATS IN THE MID 90'S AT THIS TIME ON THE BIPAP WITH 7 L BLEEDIN. RT DID NT SUCTIONING X 1 WITH LARGE AMONTS OF THICK GREEN SPUTUM SUCTIONED OUT. PT CONTINENT THROUGHOUT THE NIGHT. VOIDING SMALL FREQUENT AMOUNTS. PT REMAINED NPO. LEMON MOUTH SWABS OFFERED. PT HAS HX OF CVA WITH R SIDED DEFECITS. PT STATES THAT HE IS UNABLE TO MOVE HIS RIGHT ARM AT ALL. PT WAS ABLE TO LIFT R LEG WITH CONSIDERABLE WEAKNESS. SPEECH SLURRED, VERY DIFFICULT TO UNDERSTAND. PT BECOMES EASILY FRUSTRATED WHEN STAFF ARE ATTEMPTING TO UNDERSTAND WHAT HE IS SAYING. CONTINUOUS BIOX PLACED THIS EVENING BY RT. PT COMPLAINED OF ABD PAIN INTERMITTENTLY, MEDICATED X 2 THIS EVENING WITH 1 MG DILAUDID. ABD MIDLY DISTENDED. SOFT. SOME TENDERNESS. NO GAS OR BM THIS SHIFT. ASIDE FROM DESATTING WITH O2 THIS EVENING, VITAL SIGNS STABLE. TELE READING SR IN THE 90'S. WILL CONTINUE TO MONITOR AND REPORT TO DAY RN.
--- NOTE | 2019-11-09 06:37 | NUR ---
PT REQUESTING TO REMOVE BIPAP. BIPAP REMOVED AND PT PLACED ON 7 L OXYMIZER. O2 SATS REMAIN GREATER THAN 90% AT THIS TIME. WILL CONTINUE TO MONITOR.
--- NOTE | 2019-11-09 07:45 | NUR ---
FEEDIN TUBE PTIS A/O HARD TO UNDERSTAND DUE TO SLURRED SPEECH FROM PAST CVA, THE PTS BREATH SOUNDS WERE VERY COURSE THIS AM, THE PT WAS SUCTIONED ON LINOLEUM PRINTER AND REQUIRED AN INCREASE IN HIS OXYGEN HUMBLE, THERE WAS CONCERN THAT THE PT HAD ASPIRATED, DR. MARIA CAME IN TO ASSESS THE PT AND ASKED THE PT IF HE WOULD LIKE TO HAVE A FEEDING TUBE REPLACED OR CONSIDER HOSPICE AND EAT HOWEVER HE WISHED, THE PT REPLIED THAT HE WOULD LIKE TO HAVE THE FEEDING TUBE REPLACED
--- NOTE | 2019-11-09 17:04 | NUR ---
STUDENT ASSESSMENT I WAS PRESENT DURING AND AGREE WITH THE STUDENT NURSE AM ASSESSMENT AND DOCUMENTATION
--- NOTE | 2019-11-09 17:11 | NUR ---
SHIFT SUMMARY PT HAS BEEN ALERT AND ORIENTED TO SELF THROUGHOUT THE SHIFT. UNABLE TO ASSESS ORIENTATION FURTHER DUE TO GARBLED SPEECH. HE HAS BEEN EXPERIENCING 8/10 PAIN IN HIS ABD AND RLE AND HAS REPORTED LITTLE TO NO RELIEF FROM 1MG IV DILAUDID. PT REQUIRES SUCTION AT BEDSIDE AND ROUTINELY SUCTIONS HIMSELF OF DARK GREEN SECRETIONS. IF SUCTION IS NOT WITHIN HIS REACH HE MAY EXPEREINCE A BUILD UP OF FLUID IN HIS THROAT THAT HE IS UNABLE TO CLEAR. PT VOMITTED A LARGE AMOUNT OF ODOROUS GREEN FLUID DURING A CONSULT WITH DR CABRERA. PEG TUBE TO BE PLACED TONIGHT. NG TUBE TO BE PLACE [place] BEFORE SURGERY. PT HAS BEEN CONTINENT WITH URINAL TODAY, NO BOWEL MOVEMENTS.
[2019-11-10 06:08] LABS: Hematocrit 41.3 % (37.0-53.0); Hemoglobin 13.7 g/dL (13.5-17.5); Mean Corpuscular HGB Conc 33.2 g/dL (31.5-36.5); Mean Corpuscular Volume 93 fL (80-100); Mean Platelet Volume 10.4 fL (9.1-12.4); Platelet Count 269 K/mm3 (150-400); RDW Coefficient Variation 13.3 % (11.7-14.2); RDW Standard Deviation 45.7 fL (35.1-46.3); Red Blood Cell Count 4.42 M/mm3 (4.30-5.90); White Blood Cell Count 11.58 K/mm3 (4.00-11.30)
[2019-11-10 06:21] LABS: Anion Gap 3 mmol/L (6-16); Blood Urea Nitrogen 20 mg/dL (8-24); Bun/Creatinine Ratio 26.8 (12.0-20.0); CO2, Blood 30 mmol/L (21-32); Calcium, Blood 8.9 mg/dL (8.5-10.1); Chloride, Blood 101 mmol/L (98-108); Creatinine, Blood 0.75 mg/dL (0.60-1.20); Glomerular Filtration Rate >60 (60-); Glucose, Blood 118 mg/dL (70-99); Potassium, Blood 3.8 mmol/L (3.5-5.5); Sodium, Blood 134 mmol/L (136-145)
[2019-11-10 06:30] LABS: BAND PERCENT MAN 18 % (0-8); BASOPHILS PERCENT MAN 0 % (0-2); EOSINOPHILS PERCENT MAN 0 % (0-6); LYMPHOCYTES ABSOLUTE MAN 0.81 K/mm3 (0.84-5.20); LYMPHOCYTES PERCENT MAN 7 % (21-46); MONOCYTES ABSOLUTE MAN 1.04 K/mm3 (0.16-1.47); MONOCYTES PERCENT MAN 9 % (4-13); NEUTROPHILS ABSOLUTE MAN 9.72 K/mm3 (1.96-9.15); SEG NEUTROPHILS PERCENT MAN 66 % (41-73); TOTAL CELLS COUNTED 100
--- NOTE | 2019-11-10 06:30 | NUR ---
Patient unable to have peg tube placement completed last night as stomach area could not adequately be visualized. Patient to go back today, but will have access created in CT prior to tube placement. Patient c/o right leg pain requiring iv dilaudid twice overnight with good result. NG producing large amount of thick bileous liquid. IV in good working order with continuous clinimix alternating with Q6 Zosyn
--- NOTE | 2019-11-10 12:10 | NUR ---
PT RETURNED FROM CT. UNABLE TO DO PROCEDURE. REHOOKED TO NG SUCTION, IVF AND O2.
--- NOTE | 2019-11-10 16:54 | NUR ---
PT MOSTLY PLEASANT COOP TODAY. UNABLE TO PLACE TUBE TODAY. DR JOINER INDICATES CONTINUE LIS ON NG TUBE. CONCERN FOR SBO CONTINUES. PT ADMITS PAIN RT LEG BUT HAS HAD FOR SOME TIME. COMES AND GOES. MANAGED WITH [facility]. NO OTHER CONCERNS AT THIS TIME. BED IN LOW POSITIOIN, CALL LITE IN REACH, BED ALARM ON FOR SAFETY
[2019-11-11 06:04] LABS: Magnesium, Blood 2.4 mg/dL (1.6-2.4)
[2019-11-11 06:05] LABS: Alanine Aminotransfer (ALT/SGP 15 U/L (12-78); Albumin, Blood 2.3 g/dL (3.4-5.0); Albumin/Globulin Ratio 0.6 (0.8-1.8); Alk Phos 49 U/L (50-136); Anion Gap 4 mmol/L (6-16); Aspartate Aminotrans (AST/SGOT 17 U/L (12-37); Bilirubin, Total 1.1 mg/dL (0.1-1.0); Blood Urea Nitrogen 22 mg/dL (8-24); Bun/Creatinine Ratio 29.1 (12.0-20.0); CO2, Blood 29 mmol/L (21-32); Calcium, Blood 8.3 mg/dL (8.5-10.1); Chloride, Blood 100 mmol/L (98-108); Creatinine, Blood 0.76 mg/dL (0.60-1.20); Glomerular Filtration Rate >60 (60-); Glucose, Blood 107 mg/dL (70-99); Phosphorus, Blood 3.2 mg/dL (2.5-4.9); Potassium, Blood 4.3 mmol/L (3.5-5.5); Sodium, Blood 133 mmol/L (136-145); Total Protein, Blood 6.3 g/dL (6.4-8.2)
[2019-11-11 06:26] LABS: BAND PERCENT MAN 3 % (0-8); BASOPHILS PERCENT MAN 0 % (0-2); EOSINOPHILS PERCENT MAN 0 % (0-6); LYMPHOCYTES PERCENT MAN 14 % (21-46); MONOCYTES PERCENT MAN 10 % (4-13); SEG NEUTROPHILS PERCENT MAN 73 % (41-73); TOTAL CELLS COUNTED 100
[2019-11-11 06:29] LABS: BASOPHILS ABSOLUTE AUTO 0.09 K/mm3 (0.00-0.23); BASOPHILS PERCENT AUTO 1 % (0-2); EOSINOPHILS ABSOLUTE AUTO 0.05 K/mm3 (0.00-0.68); EOSINOPHILS PERCENT AUTO 0 % (0-6); Hematocrit 40.3 % (37.0-53.0); Hemoglobin 13.6 g/dL (13.5-17.5); IMMATURE GRAN ABSOLUTE AUTO 0.08 K/mm3 (0.00-0.10); IMMATURE GRAN PERCENT AUTO 1 % (0-1); LYMPHOCYTES ABSOLUTE AUTO 1.59 K/mm3 (0.84-5.20); LYMPHOCYTES ABSOLUTE MAN 2.41 K/mm3 (0.84-5.20); LYMPHOCYTES PERCENT AUTO 9 % (21-46); MONOCYTES ABSOLUTE AUTO 1.23 K/mm3 (0.16-1.47); MONOCYTES ABSOLUTE MAN 1.72 K/mm3 (0.16-1.47); MONOCYTES PERCENT AUTO 7 % (4-13); Mean Corpuscular HGB Conc 33.7 g/dL (31.5-36.5); Mean Corpuscular Volume 92 fL (80-100); Mean Platelet Volume 11.5 fL (9.1-12.4); NEUTROPHILS ABSOLUTE AUTO 14.18 K/mm3 (1.96-9.15); NEUTROPHILS ABSOLUTE MAN 13.08 K/mm3 (1.96-9.15); NEUTROPHILS PERCENT AUTO 82 % (41-73); Platelet Count 199 K/mm3 (150-400); RDW Coefficient Variation 13.3 % (11.7-14.2); RDW Standard Deviation 45.1 fL (35.1-46.3); Red Blood Cell Count 4.39 M/mm3 (4.30-5.90); White Blood Cell Count 17.22 K/mm3 (4.00-11.30)
--- NOTE | 2019-11-11 07:39 | NUR ---
SUMMARY PT PAIN MANAGED WELL T/O SHIFT. PT NG TUBE DRAING GREEN BILE. PT WAS ABLE TO SLEEP SOME. PT DID HAVE CONTINUED ISSUE WITH HICCUPS DURING NIGHT. PT CURRENTLY AWAKE AND IN NO DISTRESS. CALL LIGHT IN REACH.
--- NOTE | 2019-11-11 13:35 | NUR ---
PT TRANSPORTED TO DAY SURGERY VIA HOSPITAL BED, REPORT GIVEN TO DELANEY RN. PT ON 7L OXIMIZER, PT HAS 20G SL IN RFA AND 18G IN LRA. NG TUBE IN PLACE DRAING GREEN/BROWN FLUID. PT HAS METHALEX IN PLACE PREVENTATIVE.
--- NOTE | 2019-11-11 14:10 | NUR ---
NG TUBE ADJUSTED PT COMPLIANED OF INCRASED DISCOMFORT. NG CHECKED FOR PLACEMENT BY DREW RN, NG TUBE HAD STARTED TO D/C, TUBE STILL IN PLACE AND RE-ADVANCED. SYRINGE TEST PERFORMED BY THIS RN "KARINE" HEARD, AND GREEN/BROWN DRAINAGE PRESENT. PT REPORTS RELEIF POST ADJUSTMENT. AWAITING TRANSPORT TO OR.
--- NOTE | 2019-11-11 14:48 | NUR ---
ICU TRANSFER OR NOTIFIED THIS NURSE OF PT BEING TRANSPORTED TO ICU, THIS RN CALLED REPORT TO MAYCO VALDIVIA.
--- NOTE | 2019-11-11 15:01 | NUR ---
11/11/19 1501 Mila Guaman PT ON SCHEDULED ANTIBIOTICS
--- NOTE | 2019-11-11 16:51 | NUR ---
PT ARRIVES TO ICU FROM OR S/P EX LAP AND G TUBE PLACEMENT. ARRIVES INTUBATED, VENT SETTINGS AC 16/450/5/40%. PT UNRESPONSIVE TO STIMULI. LUNGS COARSE THROUGHOUT. PT MOTTLED OVER ENTIRE BODY. O2 SATS LOW 90'S. HTN ON ARRIVAL. MEDICATED c LABETALOL. NGT TO RIGHT NARE, PLACED TO LIS. BROWN EMESIS OUT. SARA DRESSING MIDLINE ABD, C/D/I. BRIGHT RED BLOOD OOZING FROM G TUBE. CHAVEZ PATENT AND DRAINING TO GRAVITY. WILL CONTINUE TO MONITOR UNTIL REPORT TO ONCOMING NURSE.
--- NOTE | 2019-11-11 18:27 | NUR ---
DR GUERRERO ROUND VENT SETTINGS CHANGED TO SPONT PS 0, 30%. PT TOLERATING WELL, RATE 15, VOLUME 700-900. O2 SATS 92%. HYPOTENSION NOTED, PT CONTINUES TO BE MOTTLED. ORDER PLACED FOR PHENYLEPHRINE. [employer] O2 SAT 88% PER DR GUERRERO. PLAN TO LEAVE ON SPONT LONG PT CAN TOLERATE AND POSSIBLY EXTUBATE TOMORROW.
--- NOTE | 2019-11-11 19:33 | NUR ---
INITAL SHIFT ASSESSMENT PT IS INTUBATED AND SEDATED AT THIS TIME. PT IS ON SPONTANEOUS VENT SETTINGS AT THIS TIME. RT REPORTED DR GUERRERO WOULD LIKE HIM TO STAY ON THIS IF POSSIBLE FOR MOST OF THE NIGHT. SEDATION IS PROPOFOL GTT AND IS AT 15MCG. PT'S BP WAS NOT HOLDING WITH THIS AMOUNT OF PROPOFOL GTT THUS CHANELLE-SYNPHERINE GTT WAS STARTED AT 20MCG. WILL TITRATE OFF SOON BP STABILIZES. PT WILL HAVE CLINIMIX STARTED ORDERED. PT HAS TWO PERIPHERAL AC IV'S THAT ARE PATENT WITH NO S/S OF INFECTION. VITALS ARE STABLE AT THIS TIME. PT DOES HAVE AN NG TUBE IN PLACE TO LOW INT SUCTION WITH MINIMAL BILE FOR RETURN. PEG TUBE ALSO IN PLACE TO LEFT ABD. CRUSTY BLOOD NOTED AROUND PEG TUBE AND GAUZE IN PLACE. WILL BE CHANGED T/O SHIFT. PT HAS A MIDLINE INCISION WITH PICCO DRESSING IN PLACE DRY NO DRAINAGE. PT HAS BILATERAL SOFT WRIST RESTRAINTS IN PLACE. HE IS MOVING HIS LEGS, BUT OTHERWISE VERY TENSE APPERANCE WITH ARMS. HE DOES DRAW HIS LEGS UP. PAS STOCKINGS IN PLACE. CHAVEZ CATH ALSO IN PLACE DRAINING CLEAR YELLOW URINE. WILL CON'T TO MONITOR AND KEEP PT SAFE T/O SHIFT.
--- NOTE | 2019-11-11 20:01 | NUR ---
review of pt with nursing. updated by physician. will follow for supportive care and prognositication and advanced care planning.
--- NOTE | 2019-11-11 23:28 | NUR ---
SHIFT UPDATE PT CON'T TO BE STABLE. PT STILL ON SPONTANEOUS SETTINGS ON VENT. PROPOFOL GTT CON'T TO BE AT 25MCG. PT DOES HAVE LESS MOTTLING TO LEGS. OVERALL PT FEELS WARMER TO TOUCH. NO CHANGES TO PICCO DRESSING. CON'T TO HAVE MINIMAL OUTPUT IN THE NG TUBE. PT CON'T TO HAVE SOFT BILATERAL WRIST RESTRAINTS IN PLACE. WILL CON'T TO MONITOR AND KEEP PT SAFE T/O SHIFT.
[2019-11-12 03:19] LABS: BASOPHILS ABSOLUTE AUTO 0.03 K/mm3 (0.00-0.23); BASOPHILS PERCENT AUTO 0 % (0-2); EOSINOPHILS PERCENT AUTO 0 % (0-6); Hematocrit 38.3 % (37.0-53.0); Hemoglobin 12.7 g/dL (13.5-17.5); IMMATURE GRAN ABSOLUTE AUTO 0.05 K/mm3 (0.00-0.10); IMMATURE GRAN PERCENT AUTO 0 % (0-1); LYMPHOCYTES ABSOLUTE AUTO 0.87 K/mm3 (0.84-5.20); LYMPHOCYTES PERCENT AUTO 7 % (21-46); MONOCYTES ABSOLUTE AUTO 0.87 K/mm3 (0.16-1.47); MONOCYTES PERCENT AUTO 7 % (4-13); Mean Corpuscular HGB 30.4 pg (26.0-34.0); Mean Corpuscular HGB Conc 33.2 g/dL (31.5-36.5); Mean Corpuscular Volume 92 fL (80-100); NEUTROPHILS ABSOLUTE AUTO 10.64 K/mm3 (1.96-9.15); NEUTROPHILS PERCENT AUTO 85 % (41-73); Platelet Count 339 K/mm3 (150-400); RDW Coefficient Variation 13.6 % (11.7-14.2); RDW Standard Deviation 46.2 fL (35.1-46.3); Red Blood Cell Count 4.18 M/mm3 (4.30-5.90); White Blood Cell Count 12.46 K/mm3 (4.00-11.30)
[2019-11-12 03:35] LABS: Anion Gap 4 mmol/L (6-16); Blood Urea Nitrogen 22 mg/dL (8-24); CO2, Blood 29 mmol/L (21-32); Calcium, Blood 7.8 mg/dL (8.5-10.1); Chloride, Blood 100 mmol/L (98-108); Creatinine, Blood 0.79 mg/dL (0.60-1.20); Glomerular Filtration Rate >60 (60-); Glucose, Blood 155 mg/dL (70-99); Magnesium, Blood 2.1 mg/dL (1.6-2.4); Potassium, Blood 3.9 mmol/L (3.5-5.5); Sodium, Blood 133 mmol/L (136-145)
[2019-11-12 05:32] LABS: PCO2 Arterial 34.3 mmHg (35-45); PO2 Arterial 56.1 mmHg (80-100); pH Blood Arterial 7.55 (7.35-7.45)
--- NOTE | 2019-11-12 05:46 | NUR ---
SHIFT SUMMARY PT CON'T TO BE STABLE. NO CHANGES TO VENT SETTINGS PT TOLERATED BEING ON SPONTANEOUS ALL NIGHT. PT DID HAVE PERIODS OF ELEVATED RR WITH TURNS, BUT OTHERWISE EVEN AND UNLABORED. PROPOFOL GTT AT 25MCG. NO S/S OF PAIN T/O SHIFT. HE DID FURROW HIS BROW WITH LIGHT PALPITATION TO ABD. PICCO DRESSING CON'T TO BE DRY. PEG TUBE CON'T TO BE CLAMMPED. MINIMAL RETURN IN THE OG TUBE WHICH CON'T AT LOW INT SUCTION. GOOD URINE OUTPUT. SEE EMAR FOR ALL ADMINISTER MEDICATIONS T/O SHIFT. TERRY SOFT WRIST RESTRAINTS CON'T TO BE IN PLACE WITH NO SKIN ISSUES. WILL CON'T TO MONITOR AND KEEP PT SAFE T/O REMAINDER OF SHIFT.
--- NOTE | 2019-11-12 07:18 | NUR ---
REC'D BEDSIDE REPORT FROM SHEA BARNES AND AM NOW ASSUMING CARE OF THIS PT.
--- NOTE | 2019-11-12 10:47 | NUR ---
PROPOFOL FULLY OFF AT THIS TIME. AFTER ABOUT 10 MINUTES ON STANDBY, PT WILL OPEN EYES TO VERBAL STIMULI, AND FOLLOW SIMPLE COMMANDS, AND ANSWER SIMPLE QUESTIONS. WILL DISCUSS POSSIBLE EXTUBATION W/ DR GUERRERO.
--- NOTE | 2019-11-12 11:52 | NUR ---
PT EXTUBATED: 1148: PT EXTUBATED AND PLACED ON 3L 02 VIA N/C. SPO2 >90% RANGE. PT HAS MOIST SOUNDING RESPIRATIONS AT THIS TIME. PT ABLE TO CLEAR LARGE AMTS OF SECREATIONS AND LUNGS WITH COARSENESS HEARD T/O BILATERALLY.
--- NOTE | 2019-11-12 18:45 | NUR ---
SHIFT SUMMARY: PT WAS EXTUBATED EARLIER THIS SHIFT. LUNGS REMAIN COARSE T/O AT TIMES, HOWEVER, BECOME CLEAR AFTER HIS PRODUCTIVE COUGH THAT PRODUCES THICK, BROWN SPUTUM. CURRENTLY ON 4L 02 VIA N/C WITH SP02 >90%. PT REMAINS SOMEWHAT DROWSY SINCE EXTUBATION, BUT AWAKENS EASILY TO VERBAL STIMULI. ANSWERS QUESTIONS APPROPRIATELY AND ABLE TO REPOSITION SELF IN BED WITH MINIMAL ASSISTANCE. PT MEDICATED WITH FENTANYL FOR CHEST PAIN R/T CPR. PT STARTED ON CLEAR LIQUID AND TOLERATING WELL, AFTER PASSING BEDSIDE SWALLOW EVALUATION. CAN ADVANCE TOLERATED.
--- NOTE | 2019-11-12 19:03 | NUR ---
REPORTED OFF TO SHEA BARNES WHOM WILL NOW ASSUME CARE OF THIS PT.
--- NOTE | 2019-11-12 19:45 | NUR ---
INITAL SHIFT ASSESSMENT BEDSIDE REPORT RECIEVED FROM OFF GOING RN. PT WAS IS RESTING QUIETLY AT THIS TIME WITH EYES CLOSED. RT IN ROOM TO PERFORM CHEST CPT. THIS RN GAVE PT SOME DILAUDID IV PRIOR. PT WAS ABLE TO TELL THIS RN THAT HE DOES HAVE SOME ABD DISCOMFORT. HE IS VERY SOFT SPOKEN AT THIS TIME AND WITHDRAWN. CON'T TO CLOSE EYES WITH ANY QUESTIONS AND DOESN'T ANSWER ALL QUESTIONS. VITALS ARE STABLE AT THIS TIME. PT HAS NC IN PLACE AT 3L. NO S/S OF RESP DISTRESS AT REST. RR IS REGULAR HOWEVER VERY SHALLOW. HE DOES HAVE A COUGH BUT IT IS WEAK AND HE IS UNABLE TO EFFECTIVELY CLEAR HIS SECRETIONS. WILL CON'T TO ORALLY SUCTION PT NEEDED T/O SHIFT. PT HAS NG TUBE IN PLACE WITH LOW INT SUCTION. VERY MINIMAL BILE RETURN. MIDLINE DRESSING IN PLACE WITH PICCO. PEG TUBE TO LEFT ABD HAS A GAUZE DRESSING IN PLACE. WILL CLEAN PEG TUBE INSERTION SITE THIS EVENING. [facility]. AT THIS TIME NO S/S OF INFECTION. DARK YELLOW URINE. PAS STOCKINGS IN PLACE AND PT TOLERATING WELL. PT HAS THREE PERIPHERAL IV'S ALL PATENT. DRESSINGS CDI. OVERALL PT IS STABLE, BUT VERY FRAGILE. WILL CON'T TO MONITOR PT T/O SHIFT.
--- NOTE | 2019-11-12 23:31 | NUR ---
SHIFT UPDATE PT HAS BEEN AWAKE FOR A FEW HOURS NOW. HE HAS THE HICCUPS OFF AND ON FOR A FEW HOURS. ZOFRAN IV WAS GIVEN WITH LITTLE RELIEF. DILAUDID IV HAS BEEN GIVEN TWICE WITH SOME RELIEF OF PAIN. HE HAS BEEN VERY SHORT WITH THIS RN. TIGHT LIPED AND NOT ANSWERING QUESTIONS UNLESS HE WANTS. WILL CON'T TO ATTEMPT TO KEEP HIM COMFORTABLE. NO CHANGE TO HIS ABD DRESSING OR TENSION TO ABD. NG CON'T TO BE HOOKED UP TO LOW INT SUCTION. VITALS ARE STABLE.
[2019-11-13 03:24] LABS: BASOPHILS ABSOLUTE AUTO 0.01 K/mm3 (0.00-0.23); BASOPHILS PERCENT AUTO 0 % (0-2); EOSINOPHILS ABSOLUTE AUTO 0.01 K/mm3 (0.00-0.68); EOSINOPHILS PERCENT AUTO 0 % (0-6); Hematocrit 32.8 % (37.0-53.0); Hemoglobin 10.7 g/dL (13.5-17.5); IMMATURE GRAN ABSOLUTE AUTO 0.05 K/mm3 (0.00-0.10); IMMATURE GRAN PERCENT AUTO 1 % (0-1); LYMPHOCYTES ABSOLUTE AUTO 1.27 K/mm3 (0.84-5.20); LYMPHOCYTES PERCENT AUTO 12 % (21-46); MONOCYTES ABSOLUTE AUTO 1.28 K/mm3 (0.16-1.47); MONOCYTES PERCENT AUTO 12 % (4-13); Mean Corpuscular HGB 30.3 pg (26.0-34.0); Mean Corpuscular HGB Conc 32.6 g/dL (31.5-36.5); Mean Corpuscular Volume 93 fL (80-100); Mean Platelet Volume 10.3 fL (9.1-12.4); NEUTROPHILS ABSOLUTE AUTO 8.18 K/mm3 (1.96-9.15); NEUTROPHILS PERCENT AUTO 76 % (41-73); Platelet Count 307 K/mm3 (150-400); RDW Coefficient Variation 13.8 % (11.7-14.2); RDW Standard Deviation 47.1 fL (35.1-46.3); Red Blood Cell Count 3.53 M/mm3 (4.30-5.90)
[2019-11-13 03:42] LABS: Anion Gap 4 mmol/L (6-16); Blood Urea Nitrogen 24 mg/dL (8-24); Bun/Creatinine Ratio 27.9 (12.0-20.0); CO2, Blood 31 mmol/L (21-32); Calcium, Blood 8.1 mg/dL (8.5-10.1); Chloride, Blood 103 mmol/L (98-108); Creatinine, Blood 0.86 mg/dL (0.60-1.20); Glomerular Filtration Rate >60 (60-); Glucose, Blood 114 mg/dL (70-99); Phosphorus, Blood 3.6 mg/dL (2.5-4.9); Potassium, Blood 3.5 mmol/L (3.5-5.5); Sodium, Blood 138 mmol/L (136-145)
--- NOTE | 2019-11-13 05:53 | NUR ---
SHIFT SUMMARY PT CON'T TO BE STABLE T/O SHIFT. HE HAS BEEN RECIEVING DILAUDID IV TO HELP WITH PAIN CONTROL. HE DOES RESPOND WELL TO THIS. PT HOWEVER DOES CON'T TO GET THE HICCUPS THAT CAUSES HIM PAIN. ZOFRAN IV ALSO HAS BEEN GIVEN TO HELP WITH HIS NAUSEA. VITALS HAVE BEEN STABLE T/O SHIFT. GOOD URINE OUTPUT. NO CHANGES TO QUALITY OF HIS LUNGS PT CON'T TO BE ON 3L N/C. HE HAS ALLOWED THIS NURSE TO MOVE HIM SLIGHTLY IN BED, BUT NO BIG TURNS. HE ALSO REQUESTED TO HAVE HIS PAS STOCKINGS TAKEN OFF. OVERALL PT IS COOPERTIVE WITH CARE, BUT DOES MOSTLY WANT TO BE LEFT ALONE AND NOT TOUCHED. CALL LIGHT IN REACH. WILL CON'T TO MONITOR AND KEEP PT SAFE TILL REPORT TO ONCOMING RN.
--- NOTE | 2019-11-13 07:46 | NUR ---
ASSUMED CARE PT. AWAKENS TO VERBAL STIMULI, PT PROVIDES VERY SHORT ANSWERS TO SOME QUESTIONS AND IS VERY DIFFICULT TO UNDERSTAND DUE TO SECRETIONS IN THROAT. PT. REFUSING TO ALLOW THIS RN TO DEEP SUCTION. PT HAS VERY WEAK COUGH AND ABLE TO COUGH UP SOME SECRETIONS BUT NOT ALL. PT. REFUSING TO BE REPOSITIONED INITIALLY HOWEVER AFTER EXPLAINING REASON PT SHAKES ARM AT THIS RN AND ALLOWS FOR REPOSITIONING. LS VERY COARSE T/O AND IS ON 6LNC. PT. PAINFUL WITH REPOSITIONING AND POINTS TO HIS ABD WHEN ASKING WHERE THE PAIN IS. PT WINCING AND HODLING ABD. NG TUBE TO LOW INT SUCTION WITH SMALL AMOUNT OF GREEN SECRETIONS IN TUBE, PEG TUBE CLAMPED. ABD FIRM HOWEVER UNCHANGED FROM PREVIOUS SHIFT. PT. HAS HICUPS INTERMIT.PT DENIES ANY FLAUTS/ BM. PT. CONTRACTED ON RIGHT SIDE DUE TO HX OF CVA. PT CONITNUES TO RECEIVE ANTIBIOTICS AND PERIPHERAL NUTRITION. MED FOR PAIN PER DR. SOTELO. CALL LIGHT AND SUCTIONS IN REACH.
--- NOTE | 2019-11-13 07:54 | NUR ---
DR. POSADAS IN TO SEE PT THIS AM PER DR. POSADAS CONNECT GTUBE TO A CATHETER DRAINAGE AND REMOVE NG TUBE TODAY. PLANS TO CONTINUE PERIPHERAL NUTRITION.
--- NOTE | 2019-11-13 10:23 | NUR ---
PALLIATIVE CARE REFERRAL RECEIVED AND INITIAL VISIT MADE: EMR reviewed and spoke with RN prior to brief visit and spoke with RN, and Dr Jurado after visit and conversation with . Pt is declining interventions such as suctioning for better airway clearance. He is currently in droplet isolation, NG in place, very cachectic, malnutritioned and agitated in his bed, rolling legs back and forth continuously. RN going in to remove NG per orders this am per surgery, and to begin using newly replaced g-tube. Pt continues to aspirate secretions. Trach discussed and pt and both requesting no more invasive procedures or life prolonging measures. verbalizes good understanding of pt's poor custodial prognosis due to ongoing aspiration and resp failure due to repeat respiratory infections and inability to recover from these pneumonia's due to malnutrition and multiple serious health concerns. states she is willing and able to bring pt home to care for him with hospice support when he is ready for discharge. SHe states he has been clear that he does not want to return to the hospital and that he wants to at home. She understands that he is not actively or imminently dying today and also that this could change rapidly in his compromised state. is appropriately grieving and tearful stating, "I knew he wasn't going to get better this time". She was informed of updated visitor policy and that pt is going to be moved to medical floor/status. She plans to come in and visit this afternoon after 4pm. confirms that pt does not want a trach for respiratory support. Dr Jurado and RN updated on all of above. I will call her with new room number when it becomes available and follow daily for support to pt/.
--- NOTE | 2019-11-13 11:08 | NUR ---
NG TUBE REMOVED PER ORDER URINE DRAINAGE BAG CONNECTED TO G TUBE PER DR. OPSADAS ORDER. PT CONTINUES TO REFUSE NT SUCTION. ABLE TO ASSIST SLIGHTLY WITH REPOSITIOINING HOWEVER REPORTS PAIN WITH MOVEMENT.MED WITH DILAUDED PER ORDER. PT UPDATED BY [facility]. REPORT CALLED TO MEDICAL FLOOR RN. PT AND ALL BELONGINGS TO TRANSFER TO MEDICAL FLOOR. VSS.
--- NOTE | 2019-11-13 14:43 | NUR ---
SECOND PHONE CONVERSATION AND VISIT MADE TO PT AND IN RM 312 AFTER TRANSFER FROM ICU. Pt expressing desire to go home and discontinue all nutritional and hydration therapy. Long discussion with and pt on consequences of resuming any PO intake and d/c of all therapy. Pt wants to go home [place] with hospice care. He had been on [facility] recently and requests [facility]. T/C to with all of above and VO obtained and entered for comfort care and dc planning for home with hospice. Contacted LUIS EDUARDO Bacon, who also met with pt/ to begin d/c planning for home with care of and hospice support. 's questions r/t hospice care answered. Pt's RN updated and informed of changes and new orders. Pt reports sever 6/10 pain to right arm and leg, skin sensitivity and pain to touch. RN to medicate per eMAR for reported pain. Pt appears anxious and has new orders for ativan available also if managing pain does not alleviate anxiety. I reiterated and asked pt in two different ways if he understood that discontinuing nutritional therapy at this time would expedite his demise and he stated yes and that was want he wanted. He does not want any life prolonging treatment at this time. He wants treatment of his severe arm and leg pain and he wants to be able to have PO fluids. He is not imminent but appropriate for EOL care at this time. Pt and understand that he may be able to go home as soon as tomorrow and are hopeful for that.
--- NOTE | 2019-11-13 18:50 | NUR ---
SHIFT SUMMARY- PT TRANSFERED FROM ICU THIS MORNING. PT TRANSITIONED TO COMFORT CARE. HE IS DIFFICULT TO UNDERSTAND AT TIMES. HE PREFERS TO SELF SUCTION NEEDED. HE IS RECIEVING SUBLINGUAL PAIN MEDICATION NEEDED. HE IS ADVANCE DIET TOLERATED AND ORDER PLACED FOR A LATE TRAY PER PT REQUEST.
--- NOTE | 2019-11-14 05:01 | NUR ---
SHIFT SUMMARY PT HAS HAD NO ACUTE CHANGES THIS SHIFT, IS A&O AND ABKE TO MAKE NEEDS KNOWN, MEDICATED PER MAR FOR PAIN, ASSISTING PT W/STRETCHING RLE & REPOS PT ALLOWS, PT SLEPT T/O THE NIGHT & IS SLEEPING AT THIS TIME, CALL LIGHT IN REACH, WILL CONT TO MONITOR UNTIL REPORT GIVEN TO DAY RN.
--- NOTE | 2019-11-14 10:59 | NUR ---
11/14/19 post op wound dressing removed incsion clean and dry.. gt was suture toskim so we were unablt to clean under boluster of GT tube gravity bag and syringe was sent home with pt if he get nauseated or vomits the can put tube to gravity so he doesn't aspirate his emesis . pt has suction at home .
[2019-11-14] MEDS ORDERED: ACET120S PR (11:11)
[2019-11-14] MEDS ORDERED: ATROPINE 0.01%-10 ML (11:13)
[2019-11-14] MEDS ORDERED: LORA1 PO (11:15)
[2019-11-14] MEDS ORDERED: ONDA4ODT (11:17)
[2019-11-14] MEDS ORDERED: MORP20L (11:17)
--- NOTE | 2019-11-14 11:31 | NUR ---
Discharge Summary A/Ox2, pleasant and cooperative. Patient discharged to home with hospice. Kristan VALDIVIA assisted with discharge paperwork. CM coordinated transportation. Charge spoke with noe Angeles to remove wound vac and west to close PEG tube drain. Catheter bag provided for PEG tube drainage at home. Medicated x 2 for pain, 1 x for anxiety. Abdominal incision c/d, jesus in tact. Mepilex replaced on coccyx. Patient transported via w/c with 2 max assist from bed to chair. Discharge paperwork sent home with patient. IV removed, personal belongings also sent home.
--- NOTE | 2019-11-14 11:36 | NUR ---
Spoke with pt's RN re: s/s management this am, gtube and dc home with hospice arrangements earlier this am. Pt leaving by kimberly ness when I went by to visit. He appears much more comfortable than when I saw him in ICU and current room yesterday. Pt has been medicated for pain and anxiety per eMAR this am, and additional dose of Roxanol later this am prior to transport.
== END 2019-11-14 11:26 | disposition hospice, home (50) | DRG 853 ==
LOC: ER 20:14 → ICUE 22:28 → MEDS 22:28 → PCU 22:28 → MEDS 11-08 14:21 → ICUE 11-11 14:38 → MEDS 11-13 11:28
PROVIDERS: Anesthesiology; Emergency Medicine; Internal Medicine; Internal Medicine Critical Care Medicine; Nurse Practitioner Acute Care; Surgery; ADMIT Internal Medicine
PROC: BD12ZZZ Fluoroscopy of Stomach (ICD-10-PCS; principal; 2019-11-09)
PROC: 8E0ZXY6 Isolation (ICD-10-PCS; 2019-11-10)
PROC: 0DH60UZ Insertion of Feeding Device into Stomach, Open Approach (ICD-10-PCS; 2019-11-11)
PROC: 5A1935Z Respiratory Ventilation, Less than 24 Consecutive Hours (ICD-10-PCS; 2019-11-11)
PROC: 0DB80ZZ Excision of Small Intestine, Open Approach (ICD-10-PCS; 2019-11-11 17:30)
DX: A41.9 Sepsis, unspecified organism (principal); J96.01 Acute respiratory failure with hypoxia; E43 Unspecified severe protein-calorie malnutrition; I69.351 Hemiplegia and hemiparesis following cerebral infarction affecting right dominant side; K94.23 Gastrostomy malfunction; I10 Essential (primary) hypertension; N40.0 Benign prostatic hyperplasia without lower urinary tract symptoms; E78.5 Hyperlipidemia, unspecified; Z87.891 Personal history of nicotine dependence; J44.9 Chronic obstructive pulmonary disease, unspecified; Z66 Do not resuscitate; I69.391 Dysphagia following cerebral infarction; Z20.828 Contact with and (suspected) exposure to other viral communicable diseases; N31.9 Neuromuscular dysfunction of bladder, unspecified; K66.8 Other specified disorders of peritoneum
CPT/HCPCS: 31720; 36415; 36600; 49440; 71045; 71046; 74018; 74150; 74176; 80048; 80053; 82803; 83735; 84100; 84145; 84484; 85025; 85610; 87070; 87077; 87186; 87205; 88307; 93005; 93010; 94002; 94003; 94660; 94667; 94668; 94760; 94762; 96374; 99152; 99153; 99285-25; J0360; J0780; J1170; J1644; J1650; J2250; J2370; J2405; J2543; J2704; J2765; J3010; J3480; J7040; J7050; J7120; Q9967; U0002